=== PATIENT | female | born 1985 | race Caucasian/White ===

== ENCOUNTER 2017-04-27 23:10 | Emergency (ER) | payer OTHER ==
[~2017-04-27] VITALS: Ht 157.5 cm; Wt 88.2 kg
[~2017-04-27 23:10] MED LIST: BCPILLS PO; SUMA25TA12 PO
[2017-04-27 23:12] VITALS: TEMP 36.8; Ht 157.5 cm; Wt 88.2 kg
[2017-04-27] MEDS ORDERED: AZITTAB PO (23:34)
[2017-04-27] MEDS ORDERED: DiphenhydrAMINE HCL 50 MG/ML VIAL IV STA (23:47)
[2017-04-27] MEDS ORDERED: METHYLPREDNISOLONE 125 MG VIAL IV STA (23:47)
[2017-04-27] MEDS ORDERED: FAMOTIDINE 20MG/5ML IV PUSH IV ONE (23:54)
[2017-04-28] MEDS ORDERED: SODIUM CHLORIDE 0.9% 1000ML 1,000 ML IV ONE
[2017-04-28] MEDS ORDERED: FAMOTIDINE IV INJ 20 MG in DEXTROSE 5% 100ML 100 ML IV ONE ×2
[2017-04-28] MEDS ORDERED: DOXY100C PO (00:48)
[2017-04-28] MEDS ORDERED: PRED50TA PO ×2 (00:48→22:57)
[2017-04-28 00:55] VITALS: BP 119/82; PULSE 99; O2SAT 98
[2017-04-28] MEDS ORDERED: DIPH1TAB87 PO (22:38)
--- NOTE | 2017-04-29 03:58 | EMERGENCY ROOM VISIT NOTE ---
History First contact with patient: 23:36 Chief Complaint: ALLERGIC REACTION Stated Complaint: POSSIBLE ALLERGIC REACTION Nursing Triage Summary: t reports that she started azithromycin yesterday and then her nose got red, painful and swollen. pt is on abx for ear infection. denies any other symptoms History of Present Illness The patient is a 31 year old female who presents to the Emergency Room with complaints of swelling of her nose that began worsening over the past several hours. The patient states that she was started on Zithromax for an ear infection yesterday. She has never taken this medication before. She tolerated the medication initially, but was concerned that she may have an allergic reaction. She is not having mouth pain or throat swelling. No coughing or wheezing.. She does not report abdominal pain or vaginal irritation. No rash. She is not taking anything [id number] for her symptoms, and rates her current discomfort a 6/10. Review of Systems More than 10 systems were reviewed and otherwise negative with the exception of history of present illness. Past Medical/Surgical History Medical Problems: (1) Asthma (2) Bronchitis (3) Contusion, arm, upper (4) Contusion, arm, upper (5) Injury of right upper arm Surgical Problems: (1) H/O section Family History FH: cancer Hypertension Social History Smoking Status: Current Every Day Smoker Alcohol Use: none Drug Use: none Marital Status: in relationship Housing Status: lives with family Occupation Status: employed Current/Historical Medications Scheduled Prednisone (Prednisone), 50 MG PO DAILY Prednisone (Prednisone), 50 MG PO DAILY Scheduled PRN Diphenhydramine Hcl (Benadryl Allergy), 25-50 MG PO UD PRN for Allergic Reaction Physical Exam Vital Signs Date Time Temp Pulse Resp B/P (MAP) Pulse Ox O2 Delivery O2 Flow Rate FiO2 04/28/17 00:55 99 20 119/82 98 Room Air 04/28/17 00:09 103 20 136/92 96 Room Air 04/27/17 23:16 99 Room Air 04/27/17 23:12 36.8 109 20 160/109 98 Room Air Physical Exam VITALS: Vitals are noted on the nurse's note and reviewed by myself. Vital signs stable. GENERAL: Well-developed, well-nourished, white female, who is in no acute distress and resting comfortably. Patient is cooperative with the examination. HEAD: Normocephalic atraumatic. EARS: External ear normal. External auditory canals clear, tympanic membranes pearly hawkins without erythema or effusion bilaterally. EYES: Pupils equal round and reactive to light and accommodation. Conjunctivae without injection, sclerae without icterus. Extraocular movements intact. NOSE: External nose is markedly erythematous and edematous. Nares are patent MOUTH: Mucous membranes moist. Tonsils are not enlarged. Pharynx without erythema, blood, or exudate. Uvula midline. Airway patent. NECK: Supple without nuchal rigidity. No lymphadenopathy. No thyromegaly. Cervical spine is nontender. HEART: Regular rate and rhythm without murmurs gallops or rubs. LUNGS: Clear to auscultation bilaterally without wheezes, rales or rhonchi. No retractions or accessory muscle use. ABDOMEN: Positive normal bowel sounds x 4. Soft, nontender, without masses or organomegaly. No guarding or rebound tenderness. MUSCULOSKELETAL: No muscle atrophy, erythema, or edema noted. Full range of motion without joint tenderness in all extremities. SKIN: The skin was without rashes, erythema, edema, or bruising. Capillary refill less than 2 seconds. Medical Decision & Procedures Medications Administered Medications (Trade) Dose Ordered Sig/Marichuy Route Start Time Stop Time Status Last Admin Dose Admin Methylprednisolone Sodium Succinate (Solu-Medrol IV) 125 mg NOW STAT IV 04/27/17 23:47 04/27/17 23:50 DC 04/28/17 00:07 125 MG Diphenhydramine HCl (Benadryl Inj) 50 mg NOW STAT IV 04/27/17 23:47 04/27/17 23:50 DC 04/28/17 00:07 50 MG Sodium Chloride 1,000 ml @ 999 mls/hr Q1H1M ONCE IV 04/28/17 00:00 04/28/17 01:00 DC 04/28/17 00:08 999 MLS/HR Famotidine (Pepcid 20mg Iv Push) 20 mg STK-MED ONCE IV 04/27/17 23:54 04/27/17 23:55 DC 04/27/17 23:54 20 MG ED Course Physical exam and history were performed. Nursing notes, EMR, and Medication List were personally reviewed. Patient appears to have an allergic reaction to Zithromax. She does not have airway compromise and is not describing anaphylactoid symptoms. IV access was established and the patient was given IV Solu-Medrol, IV Benadryl, and IV Pepcid. The patient was monitored for several hours here in the department without any worsening of her symptoms. On reevaluation she did have improved coloring of her nose, although she still remains with some edema. The patient overall reports improvement of her symptoms and is felt well for discharge home. I will give her a continuation course of prednisone. He'll ask her to stop the Zithromax. The patient is to follow with her primary care physician any ongoing or persistent symptoms. She was otherwise invited back to the ER anytime. The chart was completed utilizing [employer] Speech Voice Recognition Software. Grammatical errors, random word insertions, pronoun errors, and incomplete sentences are an occasional consequence of this system due to software limitations, ambient noise, and hardware issues. Any formal questions or concerns about the content, text, or information contained within the body of this dictation should be directly addressed to the provider for clarification. . Medical Decision Differential diagnosis: Etiologies such as allergic reaction, anaphylaxis, urticaria, Schaeffer-Brandon syndrome, toxic epidermal necrolysis, erythema multiforme, cellulitis, as well as others were entertained. Impression Primary Impression: Adverse reaction to drug Departure Information Dispostion Home / Self-Care Condition GOOD Prescriptions Prednisone (Prednisone) 50 Mg Tab 50 MG PO DAILY for 4 Days, #4 TAB Prov: Ketan Rodriguez PA-C 04/28/17 Forms HOME CARE DOCUMENTATION FORM, Work Instructions, Additional Instructions: Patient was seen and evaluated today in the emergency department fo medical care. Return to work on 04/29/2017. Please excuse. IMPORTANT VISIT INFORMATION Patient Instructions My [facility] Additional Instructions You were seen and evaluated today on an emergency basis only. This is not a substitute for, or an effort to provide, complete comprehensive medical care. It is not possible to recognize and treat all injuries or illnesses in a single emergency department visit. For this reason it is recommended that you followup with your primary care physician later this week for recheck of your condition. Discontinue Zithromax. Take prednisone as prescribed the next 4 days Take [id number] Benadryl one to 2 pills every 6 hours as needed for additional relief symptoms Doxycycline twice a day for 10 days. Avoid exposure to the sun/UV light while on this medication or use frequent application of SPF 50 or higher due to increased sensitivity to UV rays and high risk for severe ramirez. You are welcome to return to the emergency department anytime with new, worsening, or concerning symptoms. Work Instructions Additional Work Instructions: Patient was seen and evaluated today in the emergency department for medical care. Return to work on 04/29/2017. Please excuse.
== END 2017-04-28 00:56 | disposition home or self-care (01) ==
LOC: C.EDB 23:12 → C.EDC 04-28 00:56
DX: T78.40XA Allergy, unspecified, initial encounter (principal); T36.3X5A Adverse effect of macrolides, initial encounter; J45.909 Unspecified asthma, uncomplicated; Z80.9 Family history of malignant neoplasm, unspecified; Z82.49 Family history of ischemic heart disease and other diseases of the circulatory system; F17.210 Nicotine dependence, cigarettes, uncomplicated

== ENCOUNTER 2017-04-28 19:48 | Emergency (ER) | payer OTHER ==
[~2017-04-28] VITALS: Ht 157.5 cm; Wt 89.9 kg
[~2017-04-28 19:48] MED LIST changes: +AZITTAB PO; -BCPILLS PO; +DOXY100C PO; +PRED50TA PO; -SUMA25TA12 PO
[2017-04-28 20:13] VITALS: TEMP 36.8; Ht 157.5 cm; Wt 89.9 kg
[2017-04-28] MEDS ORDERED: DiphenhydrAMINE HCL 50 MG/ML VIAL IV STA (21:10)
[2017-04-28] MEDS ORDERED: RANITIDINE HCL 50 MG/100 ML D5W IV STA (21:10)
[2017-04-28] MEDS ORDERED: ALBUT/IPRATROP 3MG/0.5MG NEB 3 ML VIAL INH STA (21:10)
[2017-04-28] MEDS ORDERED: METHYLPREDNISOLONE 125 MG VIAL IV STA (21:10)
--- NOTE | 2017-04-28 21:11 | EMERGENCY ROOM VISIT NOTE ---
History Report prepared by Mingoibseveriano: Enedina Jauregui Under the Supervision of: Dr. Kevin Daly M.D. First contact with patient: 20:45 Chief Complaint: SHORTNESS OF BREATH Stated Complaint: SHORTNESS OF BREATH Nursing Triage Summary: Patient states "I was in last night for an allergic reaction and I feel very off today. I have trouble breathing." Patient took 2 benadryl STAFF RADIATION THERAPIST. History of Present Illness The patient is a 31 year old white female with a past medical history of asthma and bronchitis who presents to the ED with a cc of shortness of breath beginning last night. She reports she was seen here in the ED last night for an allergic reaction to Azithromycin, which she was placed on for a middle ear infection. Today she has continued to have difficulty breathing, so she came back to the ED. She did take 2 Benadryl STAFF RADIATION THERAPIST with minor improvement. Positive rash on face. Source of History: patient Onset: last night Position: chest Timing: other Modifying Factors (Relieving): other (Benadryl ) Associated Symptoms: + rash Review of Systems See HPI for pertinent positives and negatives. A total of ten systems were reviewed and were otherwise negative. Past Medical & Surgical Medical Problems: (1) Asthma (2) Bronchitis (3) Contusion, arm, upper (4) Contusion, arm, upper (5) Injury of right upper arm Surgical Problems: (1) H/O section Family History FH: cancer Hypertension Social History Smoking Status: Current Every Day Smoker Alcohol Use: none Drug Use: none Marital Status: in relationship Housing Status: lives with family Occupation Status: employed Current/Historical Medications Scheduled Prednisone (Prednisone), 50 MG PO DAILY Prednisone (Prednisone), 50 MG PO DAILY Scheduled PRN Diphenhydramine Hcl (Benadryl Allergy), 25-50 MG PO UD PRN for Allergic Reaction Allergies Coded Allergies: Azithromycin (Verified Allergy, Severe, Swelling and redness of face, 04/28) Doxycycline (Verified Allergy, Severe, SHORTNESS OF BREATH, 04/28/17) Hyclate Penicillins (Verified Allergy, Severe, HIVES, 04/27/17) Dog Dander (Verified Allergy, Intermediate, ITCHY EYES, SNEEZING, RUNNY NOSE, CONGESTION, 04/27/17) Physical Exam Vital Signs Date Time Temp Pulse Resp B/P (MAP) Pulse Ox O2 Delivery O2 Flow Rate FiO2 04/28/17 23:05 99 18 106/73 96 04/28/17 21:54 116 18 152/91 93 Room Air 04/28/17 21:38 110 04/28/17 21:21 98 Room Air 04/28/17 20:13 36.8 135 18 157/90 97 Room Air Physical Exam GENERAL: Awake, alert, well-appearing, NAD HENT: Normocephalic, atraumatic. Both TM's are clear. EYES: Normal conjunctiva. Sclera non-icteric. NECK: Supple. No nuchal rigidity. FROM. RESPIRATORY: CTAB, no rhonchi, wheezing, crackles CARDIAC: Tachycardic heart rate, regular rhythm, no MRG ABDOMEN: Soft, NTND, BS+ MSK: No chest wall TTP, no LE edema NEURO: GCS 15, CN 2-12 intact, moves all 4s on command SKIN: Malar rash on face, blanching, no jaundice noted. Medical Decision & Procedures ER Provider Diagnostic Interpretation: Radiology results as stated below per my review and radiologist interpretation: CHEST ONE VIEW PORTABLE HISTORY: EVALUATE ALLERGIC REACTION COMPARISON: None. FINDINGS: The lungs are clear. Cardiac silhouette is normal in size. No pleural effusions. No pneumothorax. IMPRESSION: No acute process. Electronically signed by: Brayan Donohue M.D. 04/28/2017 10:03 PM Laboratory Results 04/28/17 21:25 Red Blood Count 4.67, Mean Corpuscular Volume 91.9, Mean Corpuscular Hemoglobin 31.7, Mean Corpuscular Hemoglobin Concent 34.5, Mean Platelet Volume 9.8, Neutrophils (%) (Auto) 84.0, Lymphocytes (%) (Auto) 8.1, Monocytes (%) (Auto) 7.4, Eosinophils (%) (Auto) 0.0, Basophils (%) (Auto) 0.1, Neutrophils # (Auto) 10.11, Lymphocytes # (Auto) 0.98, Monocytes # (Auto) 0.89, Eosinophils # (Auto) 0.00, Basophils # (Auto) 0.01 04/28/17 21:25 Test 04/28/17 21:25 White Blood Count 12.04 K/uL (4.8-10.8) Red Blood Count 4.67 M/uL (4.2-5.4) Hemoglobin 14.8 g/dL (12.0-16.0) Hematocrit 42.9 % (37-47) Mean Corpuscular Volume 91.9 fL (80-100) Mean Corpuscular Hemoglobin 31.7 pg (25-34) Mean Corpuscular Hemoglobin Concent 34.5 g/dl (32-36) Platelet Count 178 K/uL (130-400) Mean Platelet Volume 9.8 fL (7.4-10.4) Neutrophils (%) (Auto) 84.0 % Lymphocytes (%) (Auto) 8.1 % Monocytes (%) (Auto) 7.4 % Eosinophils (%) (Auto) 0.0 % Basophils (%) (Auto) 0.1 % Neutrophils # (Auto) 10.11 K/uL (1.4-6.5) Lymphocytes # (Auto) 0.98 K/uL (1.2-3.4) Monocytes # (Auto) 0.89 K/uL (0.11-0.59) Eosinophils # (Auto) 0.00 K/uL (0-0.5) Basophils # (Auto) 0.01 K/uL (0-0.2) RDW Standard Deviation 40.6 fL (36.4-46.3) RDW Coefficient of Variation 12.0 % (11.5-14.5) Immature Granulocyte % (Auto) 0.4 % Immature Granulocyte # (Auto) 0.05 K/uL (0.00-0.02) Anion Gap 5.0 mmol/L (3-11) Est Creatinine Clear Calc Drug Dose 89.6 ml/min Estimated GFR () 93.0 Estimated GFR (Non- 80.3 BUN/Creatinine Ratio 12.8 (10-20) Calcium Level 9.6 mg/dl (8.5-10.1) Laboratory results reviewed by me Medications Administered Medications (Trade) Dose Ordered Sig/Marichuy Route Start Time Stop Time Status Last Admin Dose Admin Ranitidine HCl (zANTac IV) 50 mg NOW STAT IV 04/28/17 21:10 04/28/17 21:11 DC 04/28/17 21:53 50 MG Methylprednisolone Sodium Succinate (Solu-Medrol IV) 125 mg NOW STAT IV 04/28/17 21:10 04/28/17 21:11 DC 04/28/17 21:38 125 MG Albuterol/ Ipratropium (Duoneb) 3 ml NOW STAT INH 04/28/17 21:10 04/28/17 21:11 DC 04/28/17 21:37 3 ML Diphenhydramine HCl (Benadryl Inj) 50 mg NOW STAT IV 04/28/17 21:10 04/28/17 21:11 DC 04/28/17 21:37 50 MG ECG Indication: SOB/dyspnea Rate (beats per minute): 93 Rhythm: normal sinus Findings: other (normal intervals, normal axis, questionable TWI in lead 3, no other ST schanges, no other TWI, no evidence of heart strain) Change: Patient's electrocardiogram interpreted by me. ED Course 2103: The patient was evaluated in room C12A. A complete history and physical exam was performed. 2299: I reevaluated the patient. She is resting comfortably and feeling well. I discussed her results and discharge instructions and she verbalized complete understanding and agreement. Medical Decision The patient is a 31 year old white female with a past medical history of asthma and bronchitis who presents to the ED with a cc of shortness of breath beginning last night. Triage Nursing notes reviewed. The patient's presentation and history were concerning for allergic reaction. Differential diagnosis: Etiologies such as contact dermatitis, viral exanthem, urticaria, allergic reaction, Schaeffer-Brandon syndrome, toxic epidermal necrolysis, erythema multiforme, cellulitis, scabies, HSV, varicella, zoster, eczema, staph scalded skin syndrome, fungal infection, as well as others were entertained. Patient was seen and evaluated the bedside. Patient did have a recent concern for some shortness of breath. Patient states that she was recently placed on 2 separate medications for an inner ear infection which point she states that she developed some shortness of breath. On exam the patient does have mild malodor rash but she describes that this is not itchy. Patient not had any nausea or vomiting. At the bedside the patient is not tachypneic nor hypoxic. Patient denies any prior history of DVTs or PEs. Patient does not take any oral contraceptives. Patient was treated similar to an allergic reaction as the patient's symptoms began after taking this medication. The patient only felt mildly improved thereafter. Patient's EKG was fairly unremarkable did not show any signs of right heart strain. I did discuss with the patient that I believe that this is less likely to be some sort of blood clot as the patient's symptoms began after taking the medication. Patient had normal HR on EKG and increased HR after duoneb trx. With elevated HR patient would have WELLS of 1, less likely PE. Counseled on smoking cessation. Patient was told to return if she had any worsening symptoms including signs that would be concerning for things like PE or DVT or worsening shortness of breath or dyspnea on exertion. Do not believe this is CHF as patient has a clear chest x-ray does not appear volume overloaded. The patient is suitable for outpatient follow-up and treatment. Patient was given a course of steroids for home. Patient was agreeable to this plan of care. Patient was given strict follow-up, discharge, and return precautions. All questions were answered. Patient was deemed suitable for outpatient follow-up at this time. Patient agreed with the plan of care and was safely discharged home. The chart was completed utilizing [employer] Speech voice recognition software. Grammatical errors, random word insertions, pronoun errors, and incomplete sentences are an occasional consequence of this system due to software limitations, ambient noise, and hardware issues. Any formal questions or concerns about the content, text, or information contained within the body of this dictation should be directly addressed to the physician for clarification. Medication Reconcilliation Current Medication List: was personally reviewed by me Blood Pressure Screening Patient's blood pressure: Elevated blood pressure Blood pressure disposition: Elevated BP felt to be situational Impression Primary Impression: Allergic reaction Additional Impression: Encounter for smoking cessation counseling Scribe Attestation The scribe's documentation has been prepared under my direction and personally reviewed by me in its entirety. I confirm that the note above accurately reflects all work, treatment, procedures, and medical decision making performed by me. Departure Information Dispostion Home / Self-Care Prescriptions Prednisone (PREDNISONE) 50 Mg Tab 50 MG PO DAILY for 4 Days, #4 TAB Prov: Kevin Daly M.D. 04/28/17 Referrals No Doctor, Assigned (PCP) Patient Instructions ED Drug React Allergic, ED Smoking Cessation, [facility] Additional Instructions Please return to the emergency department if you have worsening or recurrent symptoms not amenable to at-home treatment. Please call for a follow-up appointment with her primary care physician. Please take your medications as prescribed. If you have other concerns and/or complaints please feel free to also call your primary care physician's office or return the ED for further evaluation, management, and treatment. Please return if you cough up any blood, have any leg swelling, worsening shortness of breath. Please stop taking your antibiotics. As we discussed your ears look well and I do not believe she require further antibiotic use. Please take your steroids preferably in the morning with food. They may cause some upset stomach and as such he may benefit from taking something like a Pepcid or Zantac. You may take 600 mg Ibuprofen every 6 hours as needed for pain with food for no more than 2 consecutive days. You may take tylenol 1000 mg every 6 hours as needed for pain. You may take motrin and tylenol separately or at the same time. Take your medications as prescribed. You have been examined and treated today on an emergency basis only. This is not a substitute for, or an effort to provide, complete comprehensive medical care. It is impossible to recognize and treat all injuries or illnesses in a single emergency department visit. It is therefore important that you follow up closely with [facility], your PCP, and/or your specialist(s). Call as soon as possible for an appointment. Thank you for your time and consideration. I look forward to speaking with you again soon. Please don't hesitate to call us if you have any questions. Problem Qualifiers Primary Impression: Allergic reaction Encounter type: subsequent encounter Qualified Codes: T78.40XD - Allergy, unspecified, subsequent encounter
[2017-04-28 21:21] VITALS: O2SAT 98
[2017-04-28 21:47] LABS: BASO % 0.1 %; BASO ABS # 0.01 K/uL (0-0.2); HEMATOCRIT 42.9 % (37-47); HEMOGLOBIN 14.8 g/dL (12.0-16.0); IG# 0.05 K/uL (0.00-0.02); LYMPH % 8.1 %; LYMPH ABS # 0.98 K/uL (1.2-3.4); MEAN CELL VOLUME 91.9 fL (80-100); MEAN CORPUSCULAR HEMOGLOBIN 31.7 pg (25-34); MEAN CORPUSCULAR HGB CONC 34.5 g/dl (32-36); MEAN PLATELET VOLUME 9.8 fL (7.4-10.4); MONO % 7.4 %; MONO ABS # 0.89 K/uL (0.11-0.59); NEUT ABS # 10.11 K/uL (1.4-6.5); PLATELET COUNT 178 K/uL (130-400); RED CELL DISTRIBUTION WIDTH SD 40.6 fL (36.4-46.3); WHITE BLOOD COUNT 12.04 K/uL (4.8-10.8)
[2017-04-28 22:03] LABS: CALCIUM 9.6 mg/dl (8.5-10.1); CREATININE 0.94 mg/dl (0.60-1.20)
--- NOTE | 2017-04-28 22:04 | DIAGNOSTIC IMAGING REPORT ---
CHEST ONE VIEW PORTABLE HISTORY: EVALUATE ALLERGIC REACTION COMPARISON: None. FINDINGS: The lungs are clear. Cardiac silhouette is normal in size. No pleural effusions. No pneumothorax. IMPRESSION: No acute process. Electronically signed by: Brayan Donohue M.D. 04/28/2017 10:03 PM Dictated Date/Time: 04/28/2017 10:02 PM
[2017-04-28] MEDS ORDERED: DIPH1TAB87 PO (22:38)
[2017-04-28] MEDS ORDERED: PRED50TA PO (22:57)
[2017-04-28 23:05] VITALS: BP 106/73; PULSE 99; O2SAT 96
== END 2017-04-28 23:05 | disposition home or self-care (01) ==
LOC: C.EDB 19:49 → C.EDC 23:05
DX: T78.40XD Allergy, unspecified, subsequent encounter (principal); X58.XXXD Exposure to other specified factors, subsequent encounter; F17.200 Nicotine dependence, unspecified, uncomplicated; J45.909 Unspecified asthma, uncomplicated; Z82.49 Family history of ischemic heart disease and other diseases of the circulatory system

== ENCOUNTER 2023-08-27 17:27 | Inpatient (IN) ==
[2023-08-27 18:33] LABS: Appearance Urine Clear (Clear); Bilirubin Urine Negative (Negative); Blood Urine Negative (Negative); Color Urine Yellow; Glucose Urine UA Negative (Negative); Ketones Urine Negative (Negative); Leukocyte Esterase Urine Negative (Negative); Nitrite Urine Negative (Negative); Protein Urine Negative (Negative); Specific Gravity Urine 1.035 (1.000-1.030); Urobilinogen Urine Negative (Negative); pH Urine 7.5 (4.5-7.5)
[2023-08-27 18:41] LABS: Basophils # (auto) 0.05 K/uL (0.00-0.20); Basophils % (auto) 0.6 %; Eosinophils # (auto) 0.08 K/uL (0.00-0.50); Eosinophils % (auto) 0.9 %; Hematocrit (blood only) 40.6 % (37.0-47.0); Hemoglobin 13.7 g/dl (12.0-16.0); Immature Granulocytes # (auto) 0.07 K/uL (0.01-0.20); Immature Granulocytes % (auto) 0.8 %; Lymphocytes # (auto) 1.97 K/uL (1.20-3.40); Lymphocytes % (auto) 23.3 %; Mean Corpuscular Hemoglobin 30.2 pg (25.0-34.0); Mean Corpuscular Hgb Conc 33.7 g/dL (32.0-36.0); Mean Corpuscular Volume 89.4 fL (80.0-100.0); Mean Platelet Volume 9.1 fL (9.4-12.4); Monocytes % (auto) 7.1 %; Neutrophils % (auto) 67.3 %; Platelet Count 328 K/uL (130-400); RDW Coefficient of Variation 11.8 % (11.5-14.5); RDW Standard Deviation 38.2 fL (36.4-46.3); Red Blood Count 4.54 M/uL (4.20-5.40); White Blood Count 8.47 K/ul (4.8-10.8)
[2023-08-27 18:42] LABS: Albumin Globulin Ratio 1.2 (0.9-2); Albumin Level 4.3 gm/dl (3.4-5.0); BUN Creatinine Ratio 11.1 (10-20); Bilirubin,Total 0.2 mg/dl (0.2-1.0); Calcium 9.1 mg/dl (8.6-10.3); Est GFR (African American) 122.3 ml/min; Est GFR (Non-African American) 105.5 ml/min; Globulin 3.5 gm/dl (2.5-4.0); Magnesium 2.1 mg/dl (1.7-2.4); Potassium 3.6 mmol/L (3.5-5.1); Total Protein 7.8 gm/dl (6.0-8.3)
[2023-08-27 18:48] LABS: Troponin I High Sensitivity 4.1 pg/ml (0-14)
[2023-08-27 18:52] LABS: Partial Thromboplastin Time 26 Seconds (21-31); Prothrombin Time 10.5 Seconds (9.0-12.0)
--- NOTE | 2023-08-27 20:32 | Emergency Department Note ---
Impression & Plan LLQ abdominal pain, Intra-abdominal abscess, Colitis ED Provider Note NAME: REMI LOVE AGE: 38 SEX: F : 1985 ARRIVES VIA: Walk-In INFORMANT: [Patient] ED PROVIDER(S): [Walter Frias MD] CHIEF COMPLAINT: Infection HISTORY OF PRESENT ILLNESS: The patient is a 38-year-old female whose had 2.5 weeks of left lower quadrant abdominal pain. The pain varies in intensity and seems to kind of come and go. She has had occasional loose stool, sometimes, she feels some urgency with her urine. She may have had a slight fever at her doctor's office today, she noticed some chills in the last few days. The patient had an outpatient CT of her abdomen today ordered by her doctors office that showed a small abscess between her colon and uterus. The largest area of the abscess was 3 cm. She had colitis seen as well. She was referred to the ER. PMHx/PSHx/Social Hx: See Below PHYSICAL EXAM: GENERAL: Patient is in no acute distress. HEENT: No acute trauma, normocephalic atraumatic, mucous membranes moist, no nasal congestion. NECK: No stridor, no adenopathy, no meningismus, trachea is midline. LUNGS: Clear to auscultation bilaterally, no wheeze, no rhonchi, breath sounds equal. HEART: Without murmurs gallops or rubs, regular rate and rhythm. ABDOMEN: Soft, moderately tender in the left lower quadrant, no distention. EXTREMITIES: No cyanosis, full range of motion of all the joints without pain or difficulty. NEUROLOGIC: Oriented x 3, no acute motor or sensory deficits, no focal weakness. SKIN: No jaundice, no diaphoresis. DIFFERENTIAL DIAGNOSIS: Colitis, diverticulitis, abscess, bowel obstruction, UTI, bowel perforation, among others. EMERGENCY DEPARTMENT PROCEDURES: MEDICAL DECISION MAKING: There is no leukocytosis or concerning anemia. There is a normal platelet count. No coagulopathy. No renal failure or significant electrolyte abnormality. Lactic acid level is not elevated making severe sepsis less likely. No concerning liver enzyme elevation. ECG shows a normal sinus rhythm, no ischemia. Cardiac enzyme testing x 1 is not consistent with acute cardiac injury. Urinalysis does not show findings of infection. Chest x-ray does not show mediastinal widening, pneumonia or pneumothorax. There is no free air. CT imaging from earlier today showed significant wall thickening and inflammatory changes of the mid sigmoid colon consistent with colitis. A small phlegmon/early abscess collection was between the inflamed colon and the uterus measuring 3 x 2.2 cm. On exam, the patient was tender in the left lower quadrant. I did call and speak with general surgery. The patient does not need emergent surgical intervention. She requires admission with IV antibiotic therapy. I spoke with the patient, I did speak with case management and the on-call hospitalist. The patient was given a liter of IV saline for hydration, she received IV Flagyl and IV cefepime as antibiotic coverage. The patient is aware of the need for hospitalization and the IV antibiotic therapy. Prior/Outside records[facility]notes [facility] discussing her presentation and the CT imaging results ECG per my interpretation: Indication was abdominal pain. The ECG shows a normal sinus rhythm with a rate of 98. There is no ST elevation, no PVCs. The QTc is 439. Imaging/x-ray results per my interpretation: Chest x-ray does not show free air, mediastinal widening or pneumonia. Chronic Medical/Social conditions affecting care: Care/Management discussed with: General surgery-Dr. Abiel Taylor. Case management and the on-call hospitalist. Level of care consideration(s): After review of the information above and other included data: --I believe the patient requires escalation of care to admission DISPOSITION: Admitted Past Med/Surg History Problem List (Updated 08/28/23 @ 01:27 by Walter Frias MD) Colitis (Acute) Intra-abdominal abscess (Acute) LLQ abdominal pain (Acute) Contracture, right shoulder S/P arthroscopy of shoulder Operation Date: 02/23/23 10:00 Actual Procedures p Right Shoulder Arthroscopy, limited debridement, In Situ Rotator Cuff Repair, Revision Subacromial Decompression(Right) - Bean Green MD Tear of infraspinatus tendon Traumatic incomplete tear of right rotator cuff S/P arthroscopy of right shoulder p Right Shoulder Arthroscopy, Subacromial Bursectomy, Perilabral Cyst Decompression, Biceps Tenodesis, Labral Repair Encounter for pre-operative examination Paralabral cyst of right shoulder Rotator cuff tear, right Gestational diabetes Twin gestation in third trimester uterine contractions in third trimester, antepartum Allergic reaction (Acute) Adverse reaction to drug (Acute) Asthma (Chronic) has not had issues in ~20 yrs Medical History History of COVID-19 01/2021- moses, cough, loss of taste and smell, no hospitalization, no current issues History of depression Surgical History (Updated 02/23/23 @ 15:12 by Cecilia Hall PA-C) History of arthroscopy of right shoulder History of tonsillectomy and adenoidectomy H/O LEEP History of dental surgery History of colposcopy Family History Other No family history of adverse response to anesthesia Social History Smoking Status: Never smoker Tobacco Type: Cigarettes Cigarettes Per Day: 10 per day - advised; Second Hand Exposure: No; Do You Dip or Chew Tobacco: No; Hx Alcohol Use: No Hx Substance Use: No Preferred Language: Lao Communication Ability: Effective Piano Instructor Required: No Beliefs That Will Affect Care: None marital status: Current Living Situation: Spouse Feels Safe at Home: Yes Assistive Devices: None Allergies Allergies Allergy/AdvReac Type Severity Reaction Status Date / Time azithromycin Allergy Severe Swelling Verified 08/27/23 20:57 of Lip/Tongue/Throat doxycycline Allergy Severe SHORTNESS Verified 08/27/23 20:57 OF BREATH dog dander Allergy Intermediate ITCHY Verified 08/27/23 20:57 EYES, SNEEZING, RUNNY NOSE, CONGESTION Penicillins Allergy Intermediate HIVES Verified 08/27/23 20:57 Home Meds Home Medications Medication Instructions Recorded Confirmed norethindrone acetate 5 mg tablet 5 mg PO QAM 08/27/23 08/27/23 Results & Data (ED) Vital Signs Vital Signs - 24 hr 08/27/23 17:30 08/27/23 20:40 08/27/23 20:59 Temperature 36.7 C Temperature Source Temporal Artery Scan Pulse Rate 103 H Pulse Rate [Finger] 93 H Respiratory Rate 20 18 Respiratory Effort / Characteristics Non-Labored Spontaneous Non-Labored Spontaneous Respiratory Depth Normal Normal Respiratory Pattern Regular Blood Pressure 168/96 H Blood Pressure [Left Arm] 176/87 H Blood Pressure Mean 120 Blood Pressure Mean [Left Arm] 116 Pulse Oximetry 98 98 97 Oxygen Delivery Method Room Air Room Air Room Air Sepsis Recent Fever Within 48 Hours Yes Sepsis New/Unexplained Change in Mental Status No Sepsis Action Taken by Nursing No Action Required 08/27/23 20:59 08/27/23 21:48 Temperature 38.2 C H Temperature Source Oral Pulse Rate 77 Pulse Rate [Finger] Respiratory Rate Respiratory Effort / Characteristics Respiratory Depth Respiratory Pattern Blood Pressure Blood Pressure [Left Arm] Blood Pressure Mean Blood Pressure Mean [Left Arm] Pulse Oximetry Oxygen Delivery Method Sepsis Recent Fever Within 48 Hours Sepsis New/Unexplained Change in Mental Status Sepsis Action Taken by Usp Medications Current Medication List: was personally reviewed by me Laboratory Data Attestation: I reviewed the patient's lab results. 08/27/23 18:07 08/27/23 18:07 Lab Results 08/27/23 08/27/23 Range/Units 18:07 18:16 WBC 8.47 (4.8-10.8) K/ul RBC 4.54 (4.20-5.40) M/uL Hgb 13.7 (12.0-16.0) g/dl Hct 40.6 (37.0-47.0) % MCV 89.4 (80.0-100.0) fL MCH 30.2 (25.0-34.0) pg MCHC 33.7 (32.0-36.0) g/dL RDW Std Deviation 38.2 (36.4-46.3) fL RDW Coeff of Yayo 11.8 (11.5-14.5) % Plt Count 328 (130-400) K/uL MPV 9.1 L (9.4-12.4) fL Immature Gran % (Auto) 0.8 % Neut % (Auto) 67.3 % Lymph % (Auto) 23.3 % [place] % (Auto) 7.1 % Eos % (Auto) 0.9 % Baso % (Auto) 0.6 % Neut # (Auto) 5.70 (1.40-6.50) K/uL Lymph # (Auto) 1.97 (1.20-3.40) K/uL [place] # (Auto) 0.60 H (0.11-0.59) K/uL Eos # (Auto) 0.08 (0.00-0.50) K/uL Baso # (Auto) 0.05 (0.00-0.20) K/uL Immature Gran # (Auto) 0.07 (0.01-0.20) K/uL PT 10.5 (9.0-12.0) Seconds INR 1.0 (0.9-1.1) APTT 26 (21-31) Seconds PTT Ratio 1.0 Sodium 136 (136-145) mmol/L Potassium 3.6 (3.5-5.1) mmol/L Chloride 104 (98-107) mmol/L Carbon Dioxide 26 (21-32) mmol/L Anion Gap 6 (3-11) BUN 8 (6-23) mg/dl Creatinine 0.72 (0.6-1.2) mg/dl Est Cr Clr Drug Dosing 107.0 ml/min Est GFR ( Amer) 122.3 ml/min Est GFR (Non-Af Amer) 105.5 ml/min BUN/Creatinine Ratio 11.1 (10-20) Glucose 99 (70-99(Fasting)) mg/dl Lactate 1.0 (0.4-2.0) mmol/L Calcium 9.1 (8.6-10.3) mg/dl Magnesium 2.1 (1.7-2.4) mg/dl Total Bilirubin 0.2 (0.2-1.0) mg/dl AST 12 L (13-39) U/L ALT 13 (7-52) U/L Alkaline Phosphatase 66 (34-104) U/L Troponin I High Sens 4.1 (0-14) pg/ml Total Protein 7.8 (6.0-8.3) gm/dl Albumin 4.3 (3.4-5.0) gm/dl Globulin 3.5 (2.5-4.0) gm/dl Albumin/Globulin Ratio 1.2 (0.9-2) Procalcitonin < 0.02 (0-0.5) ng/ml Urine Color Yellow Urine Appearance Clear (Clear) Urine pH 7.5 (4.5-7.5) Ur Specific [place] 1.035 H (1.000-1.030) Urine Protein Negative (Negative) Urine Glucose (UA) Negative (Negative) Urine Ketones Negative (Negative) Urine Blood Negative (Negative) Urine Nitrite Negative (Negative) Urine Bilirubin Negative (Negative) Urine Urobilinogen Negative (Negative) Ur Leukocyte Esterase Negative (Negative) Administered Medications Discontinued Medications Clonidine HCl (Clonidine Hcl 0.1 Mg Tab) 0.1 mg PO NOW STA Stop: 08/27/23 20:59 Last Admin: 08/27/23 21:16 Dose: 0.1 mg Documented By: MARCIA Cefepime HCl (Maxipime) 2,000 mg in 20 mls @ 5 mls/min IV NOW STA; Protocol Stop: 08/27/23 20:27 Last Admin: 08/27/23 20:33 Dose: 5 mls/min Documented By: MIRTA Metronidazole (Flagyl) 500 mg in 100 mls @ 100 mls/hr IV NOW STA; Protocol Stop: 08/27/23 21:23 Last Infusion: 08/27/23 23:34 Dose: Infused Documented By: Admin: 08/27/23 20:35 Dose: 100 mls/hr Documented By: MIRTA Sodium Chloride (Nss) 1,000 mls @ 999 mls/hr IV .Q1H1M ONE Stop: 08/27/23 21:24 Last Infusion: 08/27/23 23:34 Dose: Infused Documented By: Admin: 08/27/23 20:34 Dose: 999 mls/hr Documented By: MIRTA Discharge Plan Visit Data Chief Complaint: Infection Stated Complaint: ABSESS BETWEEN INTESTINE/UTERUS ED Provider: Walter Frias Discharge Problem: LLQ abdominal pain, Intra-abdominal abscess, Colitis Patient Disposition: Admitted As Inpatient Condition: Fair Forms Stand Alone Forms: [facility] Prescriptions Prescriptions: No Action norethindrone acetate 5 mg tablet 5 mg PO QAM Referrals Referrals: Nelson Hensley MD [Outside Practitioners] -
[2023-08-27] MEDS: CEFEPIME 2,000 MG/20 ML VIAL IV STA (20:33)
[2023-08-27] MEDS: SODIUM CHLORIDE 0.9% 1,000 ML IV ONE (20:34)
[2023-08-27] MEDS: metroNIDAZOLE 500 MG/100 ML BAG IV STA (20:35)
[2023-08-27] MEDS: cloNIDine HCL 0.1 MG TAB PO STA (21:16)
--- NOTE | 2023-08-28 00:40 | History & Physical Report ---
Date of Service August 28, 2023 Assessment & Plan (1) Sepsis: Plan: Secondary to intra-abdominal abscess Situational hypertension secondary to above bronchial asthma, stable history of cervical intraepithelial neoplasia status post LEEP mood disorder, stable off maintenance medications ongoing tobacco abuse Medical telemetry CS, Cipro, Flagyl General surgery consult Re: Intra-abdominal abscess (ER provider already in touch with Dr. Beebe.) Analgesia, clonidine 1 dose now for uncontrolled BP Nicotine patch as needed DVT prophylaxis. Lovenox subcu Full code Text document was generated using [employer] voice recognition software. It may contain grammatical or spelling errors. Kindly contact undersigned for clarification of any documentation item in question. History of Present Illness Chief Complaint: Abnormal CAT scan Primary Care Provider: Denver Neal MD History obtained from patient and records. Medical history significant for bronchial asthma, history of cervical intraepithelial neoplasia status post LEEP, mood disorder, gestational DM, ongoing tobacco abuse. 2.5 weeks history of suprapubic/lower abdominal pain without fever or chills. Patient seen at PCPs office last week. No infection on UA. Pelvic ultrasound requested by PCP due to ovarian cyst concerns. Outpatient pelvic ultrasound negative. CT abdomen pelvis requested due to persistent symptoms. Study done today showed: Significant wall thickening and inflammatory changes of the mid sigmoid colon consistent with colitis. Small phlegmon/early abscess collection between inflamed colon and uterus measuring 3 x 2.2 cm. Mild inflammatory changes left ovary also noted which may be secondary to adjacent inflammatory changes of the colon. Patient directed to ER by PCP. SBP 170s upon arrival at the ER. Cefepime and Flagyl administered at the ER. Medical History as above Surgical History : Shoulder surgery, tonsillectomy/adenectomy, LEEP surgery, dental surgery, section Family History : Heart disease Personal/Social history : 1 pack daily, no EtOH intake, [employer] jan[employer] Allergies Allergy/AdvReac Type Severity Reaction Status Date / Time azithromycin Allergy Severe Swelling Verified 08/27/23 20:57 of Lip/Tongue/Throat doxycycline Allergy Severe SHORTNESS Verified 08/27/23 20:57 OF BREATH dog dander Allergy Intermediate ITCHY Verified 08/27/23 20:57 EYES, SNEEZING, RUNNY NOSE, CONGESTION Penicillins Allergy Intermediate HIVES Verified 08/27/23 20:57 Home Medications Medication Instructions Recorded Confirmed Type norethindrone acetate 5 mg tablet 5 mg PO QAM 08/27/23 08/27/23 History Past Med/Surg History Problem List (Updated 08/28/23 @ 09:21 by Zachary Johnson MD) Sepsis Colitis (Acute) Intra-abdominal abscess (Acute) LLQ abdominal pain (Acute) Contracture, right shoulder S/P arthroscopy of shoulder Operation Date: 02/23/23 10:00 Actual Procedures p Right Shoulder Arthroscopy, limited debridement, In Situ Rotator Cuff Repair, Revision Subacromial Decompression(Right) - Bean Green MD Tear of infraspinatus tendon Traumatic incomplete tear of right rotator cuff S/P arthroscopy of right shoulder p Right Shoulder Arthroscopy, Subacromial Bursectomy, Perilabral Cyst Decompression, Biceps Tenodesis, Labral Repair Encounter for pre-operative examination Paralabral cyst of right shoulder Rotator cuff tear, right Gestational diabetes Twin gestation in third trimester uterine contractions in third trimester, antepartum Allergic reaction (Acute) Adverse reaction to drug (Acute) Asthma (Chronic) has not had issues in ~20 yrs Medical History History of COVID-19 01/2021- moses, cough, loss of taste and smell, no hospitalization, no current issues History of depression Surgical History (Updated 02/23/23 @ 15:12 by Cecilia Hall PA-C) History of arthroscopy of right shoulder History of tonsillectomy and adenoidectomy H/O LEEP History of dental surgery History of colposcopy Family History Other No family history of adverse response to anesthesia Social History Smoking Status: Current every day smoker Tobacco Type: Cigarettes Cigarettes Per Day: 10 per day - advised; Second Hand Exposure: No; Do You Dip or Chew Tobacco: No; Hx Alcohol Use: No Hx Substance Use: No Preferred Language: Bhutanese Communication Ability: Effective Compensation Administrator Required: No Beliefs That Will Affect Care: None marital status: Current Living Situation: Spouse Feels Safe at Home: Yes Assistive Devices: None Review of Systems Review of Systems: As per HPI, all other systems reviewed and negative Physical Exam Physical Exam: GENERAL: Comfortable, obese, pleasant, no respiratory distress SKIN: Normal color, warm HEENT: [place] palpebral conjunctivae, no ptosis, dry buccal mucosa NECK : Supple, short neck, no tenderness CHEST : CTA, no tenderness HEART : RRR, no obvious murmurs ABDOMEN: Some distention, hypogastric tenderness EXTREMITIES : Minimal LE swelling, no LE tenderness, chronic right shoulder tenderness, no other conspicuous deformities noted NEUROLOGIC : Coherent, no facial asymmetry, no other gross focality Results & Data Results & Data Vital Signs (Past 12 Hours) Vital Signs Temp Pulse Pulse Resp BP BP Pulse Ox 08/27/23 21:48 77 08/27/23 20:59 38.2 C H 08/27/23 20:59 97 08/27/23 20:40 93 H 18 176/87 H 98 08/27/23 17:30 36.7 C 103 H 20 168/96 H 98 O2 Del Method 08/27/23 21:48 08/27/23 20:59 08/27/23 20:59 Room Air 08/27/23 20:40 Room Air 08/27/23 17:30 Room Air Laboratory Results Laboratory Results WBC 8.47 K/ul (4.8-10.8) 08/27/23 18:07 RBC 4.54 M/uL (4.20-5.40) 08/27/23 18:07 Hgb 13.7 g/dl (12.0-16.0) 08/27/23 18:07 Hct 40.6 % (37.0-47.0) 08/27/23 18:07 MCV 89.4 fL (80.0-100.0) 08/27/23 18:07 MCH 30.2 pg (25.0-34.0) 08/27/23 18:07 MCHC 33.7 g/dL (32.0-36.0) 08/27/23 18:07 RDW Std Deviation 38.2 fL (36.4-46.3) 08/27/23 18:07 RDW Coeff of Yayo 11.8 % (11.5-14.5) 08/27/23 18:07 Plt Count 328 K/uL (130-400) 08/27/23 18:07 MPV 9.1 fL (9.4-12.4) L 08/27/23 18:07 Immature Gran % (Auto) 0.8 % 08/27/23 18:07 Neut % (Auto) 67.3 % 08/27/23 18:07 Lymph % (Auto) 23.3 % 08/27/23 18:07 [place] % (Auto) 7.1 % 08/27/23 18:07 Eos % (Auto) 0.9 % 08/27/23 18:07 Baso % (Auto) 0.6 % 08/27/23 18:07 Neut # (Auto) 5.70 K/uL (1.40-6.50) 08/27/23 18:07 Lymph # (Auto) 1.97 K/uL (1.20-3.40) 08/27/23 18:07 [place] # (Auto) 0.60 K/uL (0.11-0.59) H 08/27/23 18:07 Eos # (Auto) 0.08 K/uL (0.00-0.50) 08/27/23 18:07 Baso # (Auto) 0.05 K/uL (0.00-0.20) 08/27/23 18:07 Immature Gran # (Auto) 0.07 K/uL (0.01-0.20) 08/27/23 18:07 PT 10.5 Seconds (9.0-12.0) 08/27/23 18:07 INR 1.0 (0.9-1.1) 08/27/23 18:07 APTT 26 Seconds (21-31) 08/27/23 18:07 PTT Ratio 1.0 08/27/23 18:07 Sodium 136 mmol/L (136-145) 08/27/23 18:07 Potassium 3.6 mmol/L (3.5-5.1) 08/27/23 18:07 Chloride 104 mmol/L (98-107) 08/27/23 18:07 Carbon Dioxide 26 mmol/L (21-32) 08/27/23 18:07 Anion Gap 6 (3-11) 08/27/23 18:07 BUN 8 mg/dl (6-23) 08/27/23 18:07 Creatinine 0.72 mg/dl (0.6-1.2) 08/27/23 18:07 Est Cr Clr Drug Dosing 107.0 ml/min 08/27/23 18:07 Est GFR ( Amer) 122.3 ml/min 08/27/23 18:07 Est GFR (Non-Af Amer) 105.5 ml/min 08/27/23 18:07 BUN/Creatinine Ratio 11.1 (10-20) 08/27/23 18:07 Glucose 99 mg/dl (70-99(Fasting)) 08/27/23 18:07 Lactate 1.0 mmol/L (0.4-2.0) 08/27/23 18:07 Calcium 9.1 mg/dl (8.6-10.3) 08/27/23 18:07 Magnesium 2.1 mg/dl (1.7-2.4) 08/27/23 18:07 Total Bilirubin 0.2 mg/dl (0.2-1.0) 08/27/23 18:07 AST 12 U/L (13-39) L 08/27/23 18:07 ALT 13 U/L (7-52) 08/27/23 18:07 Alkaline Phosphatase 66 U/L (34-104) 08/27/23 18:07 Troponin I High Sens 4.1 pg/ml (0-14) 08/27/23 18:07 Total Protein 7.8 gm/dl (6.0-8.3) 08/27/23 18:07 Albumin 4.3 gm/dl (3.4-5.0) 08/27/23 18:07 Globulin 3.5 gm/dl (2.5-4.0) 08/27/23 18:07 Albumin/Globulin Ratio 1.2 (0.9-2) 08/27/23 18:07 Procalcitonin < 0.02 ng/ml (0-0.5) 08/27/23 18:07 Urine Color Yellow 08/27/23 18:16 Urine Appearance Clear (Clear) 08/27/23 18:16 Urine pH 7.5 (4.5-7.5) 08/27/23 18:16 Ur Specific [place] 1.035 (1.000-1.030) H 08/27/23 18:16 Urine Protein Negative (Negative) 08/27/23 18:16 Urine Glucose (UA) Negative (Negative) 08/27/23 18:16 Urine Ketones Negative (Negative) 08/27/23 18:16 Urine Blood Negative (Negative) 08/27/23 18:16 Urine Nitrite Negative (Negative) 08/27/23 18:16 Urine Bilirubin Negative (Negative) 08/27/23 18:16 Urine Urobilinogen Negative (Negative) 08/27/23 18:16 Ur Leukocyte Esterase Negative (Negative) 08/27/23 18:16 Diagnostic Findings EKG as per my interpretation : Rate 100, NSR, normal axis, no ischemia
[2023-08-28] MEDS ORDERED: LORazepam 0.5 MG TAB PO PRN (00:43)
[2023-08-28] MEDS ORDERED: MoRPHine SULFATE 4 MG/ML 1 ML CARP\\VIAL IV PRN (00:43)
[2023-08-28] MEDS ORDERED: oxyCODONE HCL IR 5 MG TAB (IMMEDIATE RELEASE) PO PRN (00:43)
[2023-08-28] MEDS ORDERED: PROMETHAZINE HCL 12.5 MG in SODIUM CHLORIDE 0.9% 50 ML IV PRN (00:43)
[2023-08-28] MEDS: SODIUM CHLORIDE 0.9% 1,000 ML IV STA (01:32)
[2023-08-28] MEDS: CEFEPIME 2,000 MG in SYRINGE 0 ML IV SCH (04:49)
[2023-08-28] MEDS: metroNIDAZOLE 500 MG/100 ML BAG IV SCH (04:53)
[2023-08-28 05:09] LABS: Basophils # (auto) 0.03 K/uL (0.00-0.20); Basophils % (auto) 0.5 %; Eosinophils # (auto) 0.09 K/uL (0.00-0.50); Eosinophils % (auto) 1.4 %; Hematocrit (blood only) 34.3 % (37.0-47.0); Hemoglobin 11.5 g/dl (12.0-16.0); Immature Granulocytes # (auto) 0.03 K/uL (0.01-0.20); Immature Granulocytes % (auto) 0.5 %; Lymphocytes # (auto) 2.27 K/uL (1.20-3.40); Lymphocytes % (auto) 34.3 %; Mean Corpuscular Hemoglobin 30.2 pg (25.0-34.0); Mean Corpuscular Hgb Conc 33.5 g/dL (32.0-36.0); Mean Platelet Volume 9.1 fL (9.4-12.4); Monocytes # (auto) 0.46 K/uL (0.11-0.59); Neutrophils # (auto) 3.73 K/uL (1.40-6.50); Neutrophils % (auto) 56.3 %; Platelet Count 271 K/uL (130-400); RDW Coefficient of Variation 11.8 % (11.5-14.5); RDW Standard Deviation 38.8 fL (36.4-46.3); Red Blood Count 3.81 M/uL (4.20-5.40); White Blood Count 6.61 K/ul (4.8-10.8)
[2023-08-28 05:23] LABS: BUN Creatinine Ratio 10.6 (10-20); Creatinine Clr Calc Pharmacy 116.8 ml/min; Est GFR (Non-African American) 111.3 ml/min; Potassium 3.8 mmol/L (3.5-5.1)
--- NOTE | 2023-08-28 08:12 | XRay Report ---
XR chest 1V not portable HISTORY: Sepsis COMPARISON: Chest 02/11/2023. FINDINGS: The lungs are clear. Cardiac silhouette is normal in size. No pleural effusions. No pneumot horax. IMPRESSION: No acute process. ACT 112: Negative or not required by law. Electronically signed by: Brayan Donohue M.D. 08/28/2023 8:10 AM
[2023-08-28] MEDS: ENOXAPARIN INJ 40 MG/0.4 ML SYR SQ SCH (08:27)
[2023-08-28] MEDS: LACTATED RINGER'S 1,000 ML IV ONE (15:26)
--- NOTE | 2023-08-28 15:45 | Surgery Progress Note ---
Date of Service August 28, 2023 Assessment & Plan (1) Colitis: (2) Intra-abdominal abscess: Plan Sigmoid colitis and pericolic abscess noted on outpatient CT. No leukocytosis, febrile-resolved. Admitted to medicine for IV antibiotics/conservative management. May have a full liquid diet Record U/O for fluid status. If ok and continues to tolerate diet, may keep IV heplocked. Analgesics and antiemetics as needed Will need outpatient colonoscopy after 8 weeks Will see in the am Admission and Anticipated Discharge Date Admission Date: August 28, 2023 Subjective 38 y/o F presented with 3 days of lower abdominal pain. States she initially thought this was due to an ovarian cyst as she has had in the past. She had been seen by her PCP and a pelvic US determined that this was not the case. She was then sent for a CT A/P that revealed an abscess between the colon and uterus. She was then sent to the ED for further evaluation and management. Jyothi ssa states she has not had any fevers at home. She has never had any GI issues in the past, no h/o colonoscopy and has no idea why she would have developed this. She has normal bowel movements with consistent bowel habits, no blood per rectum, no diarrhea or constipation. Denies N/V or urinary complaints. In the ED here, she did have a fever to 38.2C with stable VSS. Review of Systems Constitutional: no fever, no chills, no sweats and no malaise Respiratory: no cough, no chest congestion, no hemoptysis and no wheezing Cardiovascular: no chest pain, no dyspnea, no palpitations and no syncope Gastrointestinal: + abdominal pain (lower mid and LLQ); no nausea, no vomiting and no diarrhea/loose stools Genitourinary: no dysuria, no difficulty urinating, no urinary frequency and no urinary urgency Physical Exam Constitutional: cooperative; not ill appearing, not in distress and not diaphoretic Respiratory: normal respiratory effort; no respiratory distress, no labored breathing and does not use accessory muscles Cardiovascular: Rate/Rhythm: regular rate; not tachycardic well perfused Gastrointestinal (Abdomen): Inspection/Auscultation: abdomen not distended Percussion/Palpation: + abdomen tender (mild mid and LLQ), + guarding (mild, voluntary) and abdomen soft; abdomen not rigid Results & Data Vital Signs (Past 12 Hours) Vital Signs Pulse Resp BP Pulse Ox 06/01/24 11:09 68 08/28/23 08:21 59 L 15 126/74 93 08/28/23 05:00 77 18 107/60 94 Results Complete Blood Count Results: RBC 3.81 M/uL (4.20-5.40) L 08/28/23 WBC 6.61 K/ul (4.8-10.8) 08/28/23 Hgb 11.5 g/dl (12.0-16.0) L 08/28/23 Hct 34.3 % (37.0-47.0) L 08/28/23 Plt Count 271 K/uL (130-400) 08/28/23 PG Care Time/CCT Total # of Minutes Spent Total Time Spent with Patient: Total time spent is greater than 50% in coordination of care (as documented) at patient's floor/unit and/or counseling patient: [place] [address] SUB INP/OBS CARE 2/35MIN Patient Type New History Detailed Exam Detailed Diagnoses Colitis K52.9 Intra-abdominal abscess K65.1
--- NOTE | 2023-08-28 16:45 | Hospitalist Progress Note ---
Date of Service August 28, 2023 Assessment & Plan (1) Sepsis: Plan: Intra-abdominal abscess Colitis --Outpatient CT: Significant wall thickening and inflammatory changes of the mid sigmoid colon consistent with colitis. Small phlegmon/early abscess collection between inflamed colon and uterus measuring 3 x 2.2 cm. Mild inflammatory changes left ovary also noted which may be secondary to adjacent inflammatory changes of the colon. -- Blood culture pending -- Continue Cipro, Flagyl, IV fluids -- Liquid diet today --Pain control --Appreciate surgery input: Conservative management with IV antibiotics --Will obtain stool studies if develops diarrhea Will need outpatient colonoscopy in 8 weeks Hypertension Situational secondary to pain Blood pressure much better today Monitor Bronchial asthma No signs of exacerbation Monitor H/O Cervical intraepithelial neoplasia S/P LEEP Mood disorder--currently not on meds Ongoing tobacco abuse--counseled to quit smoking DVT Px: Lovenox SQ Code Status Full code Admission and Anticipated Discharge Date Admission Date: August 28, 2023 Subjective Patient is seen and examined at bedside Abdominal pain better when compared to yesterday Denies any nausea, vomiting, chest pain, dyspnea States having loose BM today No other complaints Review of Systems Review of Systems: All systems reviewed & are unremarkable except as noted in Subjective Physical Exam Physical Exam: Physical Exam: Vitals signs as noted above General Appearance:Obese, no apparent distress Head: normocephalic, Atraumatic Eyes: normal inspection, EOMI Neck: supple, Trachea midline Respiratory/Chest: Normal breath sounds, CTA, No accessory muscle use Cardiovascular: S1, S2, No murmur Abdomen/GI:Soft, LLQ tender, Bowel sounds present Extremities/Musculoskeletal:normal inspection, no edema Neurologic/Psych:AAOX3, grossly no focal neurological deficits Skin: normal color, warm Results & Data Results & Data Vital Signs (Past 12 Hours) Vital Signs Pulse Resp BP Pulse Ox 08/28/23 16:12 63 08/28/23 11:09 68 08/28/23 08:21 59 L 15 126/74 93 08/28/23 05:00 77 18 107/60 94 Laboratory Results Short CBC 08/27/23 08/28/23 Range/Units 18:07 04:20 WBC 8.47 6.61 (4.8-10.8) K/ul Hgb 13.7 11.5 L (12.0-16.0) g/dl Hct 40.6 34.3 L (37.0-47.0) % Plt Count 328 271 (130-400) K/uL BMP 08/27/23 08/28/23 18:07 04:20 Sodium 136 138 Potassium 3.6 3.8 Chloride 104 109 H Carbon Dioxide 26 24 BUN 8 7 Creatinine 0.72 0.66 Glucose 99 93 Calcium 9.1 8.0 L Liver Function 08/27/23 Range/Units 18:07 Total Bilirubin 0.2 (0.2-1.0) mg/dl AST 12 L (13-39) U/L ALT 13 (7-52) U/L Alkaline Phosphatase 66 (34-104) U/L Albumin 4.3 (3.4-5.0) gm/dl Urine 08/27/23 Range/Units 18:16 Urine Color Yellow Urine Appearance Clear (Clear) Urine pH 7.5 (4.5-7.5) Ur Specific [place] 1.035 H (1.000-1.030) Urine Protein Negative (Negative) Urine Glucose (UA) Negative (Negative)
[2023-08-28] MEDS: CIPROFLOXACIN / D5W 400 MG/200 ML BAG IV SCH (19:16)
--- OUTSIDE RECORDS SUMMARY | 2023-08-28 19:26 | External Medical Summary | Summary of Care ---
Author Name Unknown Organization [facility] Address [address] [facility] [place] [address] Phone [phone] Care Team Providers Care Forecast Analyst Name Role Phone Vane Bob PA-C Primary Care Provider [phone] Reason for Visit * Reason Comments Abdominal Pain Lower abdomen for ab out 1.5 weeks Encounter Details Date Type Department Care Team (Late st Contact Info) Description 08/21/2023 10:00 AM EDT Office Visit Family [facility] [address] [place] [address] Denver Neal MD [address] [place] [address] Suprapubic pain* Allergies Active Allergy Reactions Criticality Noted Date Comments Azithromycin Anaphylaxis High 08/18/2018 Penicillins 04/29/1999 swelling documented as of this encounter (statuses as of 08/21/2023) Medications Medication Sig Dispensed Refills Start Date End Date Status Norethindrone Acetate 5 MG Oral TabletIndications:Pel shannan pain in female Take 1 Tablet by mouth in the morning. 30 Tablet 5 07/13/2023 Active documented as of this encounter (statuses as of 08/21/2023) Active Problems Problem Noted Date Diagnosed Date Acanthosis nigricans 06/10/2022 Mild persistent asthma without complication 04/29 Advance directive declined by patient 11/10/2018 Overview: No, Advance Directive brochure offered, patient declined. 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 12/26/2018 Crystal De La Cruz LPN Patient given TDap vaccine. 12/26/2018 .Crystal De La Cruz LPN Thrombocytopenia 12/07/2018 01/16/2019 Overview: @31w4d plts 127 GDM (gestational diabetes mellitus) 10/20/2018 01/16/2019 Overview: Early 1hr gtt elevated over 200 Has not been reported blood sugars to [facility] despite weekly attempts to contact patient Reporting blood sugars to [facility]; last reported on 11/24/18 then 01/06/19 Diet controlled Twin gestation, monochorionic diamniotic 10/13/2018 10/10/2021 Need for rubella vaccination 08/23/2018 01/16/2019 Overview: Rubella non-immune. Vaccinate PP. Obesity, Class II, BMI 35-39 .9, isolated (see actual BMI) 08/18/2018 01/16/2019 Overview: Early glucola ordered Tobacco smoking complicating 08/18/2018 01/16/2019 Overview: Smoking under 1ppd at NOB, down from at least 1.5ppd. @24w5d continues to smoke 1ppd- does not intend to quit Twin 08/18/2018 01/16/2019 Dysplasia of cervix, high grade CORTEZ 2 05/20/2015 04/22/2022 Overview: 2005 Annual paps til 2024. Tobacco use disorder 04/01/2007 009 Overview: Resolved per Duplicate Protocol #2. PREV C-SECT NOS-ANTEPART 09/09/2005 Overview: 2 prior c/s Encounter for supervision of other normal 09/09/2005 05/20/2015 Overview: ICD-10 update of inactive term Encounter for supervision of other normal 09/09/2005 05/20/2015 Overview: ICD-10 update of inactive term Cervical intraepithelial neoplasia grade 2 07/16/2004 05/20/2015 ACUTE PHARYNGITIS 04/25/2003 05/17/2008 Overview: Resolved per Benign Acute Dxs Protocol #3 ACUTE URI NOS 04/25/2003 05/17/2008 Overview: Resolved per Benign Acute Dxs Protocol #3 HISTORY OF TOBACCO USE 04/25/200305/20 Cough 04/25/2003 10/10/2021 Normal , first 03/20/200307/29 KNEE PAIN, RIGHT, S/P INJURY 11/07/2002 10/10/2021 Major depressive disorder, s jordin episode, moderate 03/09/2000 10/10/2021 High-risk sexual behavior 03/09/2000 CONTRACEPT SURVEILL NOS 03/09/200009/26 EXT ASTHMA W-O STAT ASTH documented as of this encounter (statuses as of 08/21/2023) Immunizations Name Administration Dates Next Due HPV Vaccine, 4-Valent 08/29/2010,05/01/2010,12/0 04/200904/24/2010 MMR - Measles/Mumps/Rubella Vaccine 01/12/2019 PPD 07/09/2010 Pneumococcal Polysaccharide PPV23 (Pneumovax) 04/10/2010 Seasonal Influenza, PF, 6 M & above, IM , (FluLaval or Fluzone) 12/26/2018 Seasonal Influenza, Split, I IV3, With Preserve, Inj 02/26/2010 TDAP (age 10 and older)(Boostrix) 12/26/2018 documented as of this encounter Social History Tobacco Use Types Packs/Day Years Used Date Smoking Tobacco: Every Day Cigarettes 0.5 8 Passive Smoke Exposure: Current Smokeless Tobacco: Never Tobacco Cessation:Ready to Q uit: Yes; Counseling Given: No Comments:1/2 ppd per pt, decreased from 1-1.5 ppd prior to Alcohol Use Standard Drinks/Week Comments No 0 (1 standard drink = 0.6 oz pur e alcohol) denies in 2019 PHQ-2 Answer Date Recorded PHQ Adult Total Score 2 05/12/2022 Hunger Vital Sign Answer Date Recorded Within the past 12 months, y ou worried that your food would run out before you got the money to buy more. Never true 05/12/19 23 Within the past 12 months, t he food you bought just didn't last and you didn't have money to get more. Never true 05/12/2022 [place] Depression Scale Answer Date Recorded [place] Depression Scale Score 5 02/22/2019 The thought of harming myself has occurred to me . (Pt Reported) 02/22/2019 Education Answer Date Recorded What is the highest level of school you have completed or the highest degree you have received? High school graduate 09/26/2018 Sex and Gender Information Value Date Recorded Sex Assigned at Female 05/12/2022 9:04 AM EST Gender Identity Female 05/12/2022 9:04 AM EST Sexual Orientation Straight 05/12/2022 9: 04 AM EST Job Start Date Occupation Industry Not on file Not on file Not on file documented as of this encounter Last Filed Vital Signs Vital Sign Reading Time Taken Comments Blood Pressure 116/76 08/21/2023 9:52 AM EDT Pulse 96 08/21/2023 9:52 AM EDT Temperature 37.1 C (98.7 F) 08/21/2023 9:52 AM ED T Respiratory Rate 12 08/21/2023 9:52 AM EDT Oxygen Saturation - - Inhaled Oxygen Concentration - - Weight 89 kg (196 lb 3.2 oz) 08/21/2023 9:52 AM EDT Height - - Body Mass Index 36.77 10/12/2022 11:27 AM EDT documented in this encounter Progress Notes * Denver Neal MD - 08/21/2023 10:07 AM EDT SUBJECTIVE: Carin Stone is a 38 year old female here for Abdominal Pain (Lower abdomen for about 1.5 weeks) . C/o suprapubic/lower abd pain x1.5 wk or so. Generally sharp, some times milder. Generally always there. She has 2 preschool boys. One with stomach pain for a couple days and other for the last 3 days but they both had some diarrhea with it. She has not had any diarrhea. No fever no chills no chest pain no shortness of breath. No dysuria. No significant frequency. Today had normal soft BM, yesterday was a little constipated. She typically alternates between constipated and normal. Sometimes feels like she has sense of incomplete emptying of her urine. She does has a has a history of ovarian cyst, although they usually have not been sore this long. Her last menstrual period was over a month ago. She has not had sex in the last month and she is on progesterone oral contraception. Physical: BP 116/76 (BP Site: Left Arm, BP Position: Sitting, BP Cuff Size: Large) | Pulse 96 | Temp 37.1 C(98.7 F) (Tympanic) | Resp 12 | Wt 89 kg (196 lb 3.2 oz) | BMI 36.77 kg/m | BSA 1.96 m General-No apparent Distress Head, Eyes, Ears, Nose, Throat--Normocephalic, atraumatic Neck-Supple Lymph-no lymphadenopathy Lungs-Clear to Auscultation bilaterally Cardiovascular--Regular rate & Rhythm, +s1, s2, no murmur Abdomen-soft, +LLQ pain, +suprapubic tender, nondistended + bowel sounds no rebound Extremities--no edema Neuro-alert & oriented x3 UA dip UA WNL except +blood (lysed) Upreg neg (R10.2) Suprapubic pain (primary encounter diagnosis) Plan: URINALYSIS, POINT OF CARE (ENTER/EDIT), URINE SCREEN, POINT OF CARE (ENTER/EDIT), US PELVIS TRANS-VAGINAL NON-OB, CULTURE, URINE, QUANTITATIVE, CANCELED: HCG QUALITATIVE, URINE -suspect ovarian cyst -consider diverticulitis, colitis, less likely. Upreg neg. -ibuprofen up to 800mg TID ER if acute worsening (This note was completed using the dictation program Fluency Direct. As such, there may be misspellings, word substitutions, or other variations that should not change the essence of the clinical content of this encounter note.If there is need for further clarification, please direct questions to the provider listed above.) Denver Neal MD documented in this encounter Nursing Notes * Ad Ahn RN - 08/21/2023 9:54 AM EDT Chief Complaint Patient presents with Abdominal Pain Lower abdomen for about 1.5 weeks documented in this encounter Plan of Treatment Upcoming Encounters Date Type Department Care Team (Late st Contact Info) Description 08/25/2023 11:15 AM EDT Imaging Radiology, [place] [address] [place] [address] 10/14/2023 2:20 PM EDT Office Visit [facility] [place] [address] [place] [address] Vane Bob PA-C [address] [place] [address] Scheduled Orders Name Type Priority Associated Diagnoses Orde r Schedule URINALYSIS, POINT OF CARE (ENTER/EDIT) Point of Care Testing Routine Suprapubic pain Ordered: 08/21/2023 US PELVIS TRANS-VAGINAL NON-OB Medical Imaging STAT Suprapubic pain Expected: 08/24/2023, Expires: 09/20/2024 CULTURE, URINE, QUANTITATIVE Lab Routine Suprapubic pain Ordered: 08/21/2023 Health Maintenance Due Date Last Done Comments DISCUSS TOBACCO CESSATION (REFER TO SMARTSET #4396) 1984 Pneumococcal Vaccine: Pediatrics (0 to 5 Years) and At-Risk Patients (6 to 64 Years) (2 of 2 - PCV) 04/10/2011 04/10/2010 *SPIROMETRY ONCE FOR ASTHMA-ADULT 02/19/2022 COVID-19 Vaccine (1 - season) 2022 Depression Screening 05/12/2023 05/12/2022 Influenza Vaccine (FLU shot) (Season Ended) 2023 12/26/2018, 02/26/2010 Pap Smear 04/22/2025 04/22/2022, 07/28, 05/20/2015, Additional history exists Diabetes Screening 06/22/2026 06/23/2023, 0 06/23/2023, 04/04/2018, Additional history exists Cervical Cancer Screening 04/22/2027 HPV/Co-Test 04/22/2027 04/22/2022 DTaP,Tdap,and Td Vaccines (7 - Td or Tdap) 12/26/2028 12/26/2018, 10/12/1989, 03/12/1986, Additional history exists Hepatitis B Completed 09/11/1998, 02/27, 02/20/1998 GARDASIL-HPV IMMUNIZATION SERIES Completed 08/29/2010, 05/01/2010, 02/27/2010 MENINGOCOCCAL (MENACTRA/MENVEO) Aged Out No longer eligible based on patient's age to complete this topic documented as of this encounter Medical Devices Not on filedocumented as of this encounter Procedures Procedure Name Priority Date/Time Associated Diagnosis Comments URINALYSIS, POINT OF CARE SHAYY 08/21/2023 10:12 AM EDT URINE SCREEN, POINT OF CARE (ENTER/EDIT) Routine 08/21/2023 Suprapubic pain documented in this encounter Results * (ABNORMAL) URINALYSIS, POINT OF CARE (08/21/2023 10:12 AM EDT) Color, Urine Light Yellow Light Yellow, Yellow 08/21/2023 10:15 AM EDT [facility] Clarity, Urine Clear Clear 08/21/2023 10:15 AM EDT [facility] Glucose, Urine Negative Negative mg/dL 08/21/2023 10:15 AM EDT [facility] Bilirubin, Urine Negative Negative 08/21/2023 10:15 AM EDT [facility] Ketone, Urine Negative Negative mg/dL 08/21/2023 10:15 AM EDT [facility] Specific [place], Urine <=1.005 1.003 - 1.030 08/21/2023 10:15 AM EDT [facility] Blood, Urine Trace-lysed( A) Negative 08/21/2023 10:15 AM EDT [facility] pH, Urine 7.0 5.0, 5.5, 6.0, 6.5, 7.0, 7.5 units 08/21/2023 10:15 AM EDT [facility] Protein, Urine Negative Negative mg/dL 08/21/2023 10:15 AM EDT [facility] Urobilinogen, Urine 0.2 0.2, 1.0 mg/dL 08/21/2023 10:15 AM EDT [facility] Nitrite, Urine Negative Negative 08/21/2023 10:15 AM EDT [facility] Esterase, Urine Negative Negative 08/21/2023 10:15 AM EDT [facility] Urine 08/21/2023 10:1 2 AM EDT 08/21/2023 10:15 AM EDT Denver Neal MD LAB POINT OF CAR E TEST DOCKED DEVICE UNSOLICITED RESULTS [facility] [address] [facility] [place] [address] * URINE SCREEN, POINT OF CARE (ENTER/EDIT) (08/21/2023) hCG Beta, Urine Negative Negative Procedural Control Valid? Yes Lot Number [id number] Expiration Date 04/25/2024 Urine 08/21/2023 Denver Nela MD LAB POINT OF CAR E TEST ENTER/EDIT ORDERABLES documented in this encounter Visit Diagnoses Diagnosis Suprapubic pain- Primary Abdominal pain, other specified site documented in this encounter Advance Directives * Full Code (Latest Code Status on File) Date Activated Date Inactivated Comments 01/09/2019 7:42 AM 01/12/2019 6:14 PM This order reflects the patients wishes and were consensually agreed upon. * Full Code Date Activated Date Inactivated Comments 01/08/2019 11:09 AM 01/08/2019 5:18 PM This orde r reflects the patients wishes and were consensually agreed upon. Care Teams Forecast Analyst Relationship Specialty Start Date End Date Vane Bob PA-C [address] [place] [address] PCP - General Physician Fixing Carpenter 10/10/21 documented as of this encounter"
--- OUTSIDE RECORDS SUMMARY | 2023-08-28 19:26 | External Medical Summary ---
Author Name Unknown Address Unknown Organization [id number]:[facility] - [address] [place] [address] Laboratory Report Ordering Provider Test Date Status ANTON PEREZ 08/21/2023 10:12:00 Final Observation Date Value Abnormality Reference (Units ) Status Color of Urine by Auto 08/21/2023 10:12:00 Light Yellow Light Yellow, Yellow Final Clarity, Urine 08/21/2023 10:12:00 Clear Clear Final Glucose [Mass/volume] in Urine by Automated test strip 08/21/2023 10:12:00 Negative Negative (mg/dL) Final Bilirubin.total [Presence] in Urine by Automated test strip 08/21/2023 10:12:00 Negative Negative Final Ketones [Mass/volume] in Urine by Automated test strip 08/21/2023 10:12:00 Negative Negative (mg/dL) Final Specific gravity, Urine 08/21/2023 10:12:00 <=1.005 1.003-1.030 Final Hemoglobin [Presence] in Urine by Automated test strip 08/21/2023 10:12:00 Trace-lysed Abnormal Negative Final pH, Urine 08/21/2023 10:12:00 7.0 5.0, 5.5, 6.0, 6.5, 7.0, 7.5 (units) Final Protein [Mass/volume] in Urine by Automated test strip 08/21/2023 10:12:00 Negative Negative (mg/dL) Final Urobilinogen, Urine 08/21/2023 10:12:00 0.2 0.2, 1.0 (mg/dL) Final Nitrite [Presence] in Urine by Automated test strip 08/21/2023 10:12:00 Negative Negative Final Leukocyte esterase [Presence] in Urine by Automated test strip 08/21/2023 10:12:00 Negative Negative Final Performing Location [facility] [address] - [address] [place] [address]
--- OUTSIDE RECORDS SUMMARY | 2023-08-28 19:26 | External Medical Summary ---
Author Name Unknown Address Unknown Organization [id number]:[facility] - [address] [place] [facility] Laboratory Report Ordering Provider Test Date Status ANTON PEREZ 08/21/2023 10:24:42 Final Observation Date Value Abnormality Reference (Units) Status Bacteria identified in Specimen by Culture 08/21/2023 10:24:42 No significant growth Final Test: Culture, Urine, Quant itative
Specimen Source: Urine, Clean Catch
Specimen Type: Urine
Specimen Date: 08/21/2023 1024
Result Date: 08/22/2023 1330
Result Status: Final result
Resulting Lab: [facility]
[address]
[place] [address]

CULTURE

No significant growth

null Performing Location [facility] - [address] [place] [facility] [address]
--- OUTSIDE RECORDS SUMMARY | 2023-08-28 20:51 | External Medical Summary | Summary of Care ---
Author Name Unknown Organization [facility] Address [address] [facility] [place] [address] Phone [phone] Care Team Providers Care Matzo Forming Machine Operator Name Role Phone Vane Bob PA-C Primary Care Provider [phone] Reason for Visit * Reason Onset Date Comments Test Results 08/27/2023 Encounter Details Date Type Department Care Team (Late st Contact Info) Description 08/27/2023 Telephone [facility] [address] [place] [address] Vane Bob PA-C [address] [place] [address] Test Results Allergies Active Allergy Reactions Criticality Noted Date Comments Azithromycin Anaphylaxis High 08/18/2018 Penicillins 04/29/1999 swelling documented as of this encounter (statuses as of 08/27/2023) Medications Medication Sig Dispensed Refills Start Date End Date Status Norethindrone Acetate 5 MG Oral TabletIndications:Pel shannan pain in female Take 1 Tablet by mouth in the morning. 30 Tablet 5 07/13/2023 Active documented as of this encounter (statuses as of 08/27/2023) Active Problems Problem Noted Date Diagnosed Date Acanthosis nigricans 06/10/2022 Mild persistent asthma without complication 04/29 Advance directive declined by patient 11/10/2018 Overview: No, Advance Directive brochure offered, patient declined. 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, selective IUGR of Baby A (EFW 5%); Baby B normal growth NST 2x weekly; weekly dopplers with [facility]; delivery 36 weeks with normal testing Dichorionic [...] Has not been reported blood sugars to [facility] despite weekly attempts to contact patient Reporting blood sugars to [facility]; last reported on 11/24/18 then 01/06/19 [...] as of this encounter (statuses as of 08/27/2023) Immunizations Name Administration Dates Next Due HPV [...] Passive Smoke Exposure: Current Smokeless Tobacco: Never Comments:1/2 ppd per pt, dec reased from 1-1.5 ppd prior to Alcohol Use [...] money to get more. Never true 05/12/2022 [place] Depression Scale Answer Date Recorded [place] Depression Scale Score 5 02/22/2019 The thought [...] on file documented as of this encounter Miscellaneous Notes * Telephone Encounter - Cheyenne Palm LPN - 08/27/2023 4:07 PM EDT Ruma calling from [facility] Significant abnormal results on CT ABD/Pelvis Ordering provider needs to review: Dr. Neal Spoke with Stephenie at the office, CT Teach came over to the office to make nurses aware of the abnormal results, patient in the office currently and Dr. Neal is going to talk with patient. * Telephone Encounter - Stephenie Stoddard OSA - 08/27/2023 4:04 PM EDT Reason for patient's call: abnormal results Caller was transferred to [facility] at the nurse line. documented in this encounter Plan of Treatment Upcoming Encounters Date Type Department Care Team (Late st Contact Info) Description 10/14/2023 2:20 PM EDT Office Visit [facility] [address] [place] [address] Vane Bob PA-C [address], [place] [id number] Health Maintenance Due Date Last Done Comments DISCUSS TOBACCO CESSATION (REFER TO SMARTSET #[id number]) 1984 Pneumococcal Vaccine: Pediatrics (0 to 5 Years) and At-Risk Patients (6 to 64 Years) (2 of 2 - PCV) 04/10/2011 04/10/2010 *SPIROMETRY ONCE FOR ASTHMA-ADULT 02/19/2022 COVID-19 Vaccine ( - season) 2022 Depression Screening 05/12/2023 05/12/2022 [...] Not on filedocumented as of this encounter Advance Directives * Full Code (Latest Code Status on File) Date Activated Date Inactivated Comments 01/09/2019 7:42 AM 01/12/2019 6:14 PM This order reflects the patients wishes and were consensually agreed upon. * Full Code Date Activated Date Inactivated Comments 01/08/2019 11:09 AM 01/08/2019 5:18 PM This orde r reflects the patients wishes and were consensually agreed upon. Care Teams Matzo Forming Machine Operator Relationship Specialty Start Date End Date Vane Bob PA-C [address] [facility] [place] [address] PCP - General Physician Computer Technician 10/10/21 documented as of this encounter
--- OUTSIDE RECORDS SUMMARY | 2023-08-28 20:51 | External Medical Summary | Summary of Care ---
Author Name Unknown Organization [facility] Address [address] [facility] [place] [address] Phone [phone] Care Team Providers Care Regasification Plant Operator Name Role Phone Vane Bob PA-C Primary Care Provider [phone] Encounter Details Date Type Department Care Team (Late st Contact Info) Description 08/27/2023 Telephone Family Practice [facility] [address] [place] [address] Denver Neal MD [address] [place] [address] Allergies Active Allergy Reactions Criticality Noted Date [...] growth NST 2x weekly; weekly dopplers with [facility]; delivery 36 weeks with normal testing [...] Has not been reported blood sugars to [facility] despite weekly attempts to contact patient Reporting blood sugars to [facility]; last reported on 11/24/18 then 01/06/19 [...] Administration Dates Next Due HPV Vaccine, 4-Valent 08/29/2010,05/01/2010,1204/200904/24/2010 MMR - Measles/Mumps/Rubella Vaccine 01/12/2019 PPD 07/09/2010 [...] money to get more. Never true 05/12/2022 [place] Depression Scale Answer Date Recorded [place] Depression Scale Score 5 02/22/2019 The thought [...] encounter Miscellaneous Notes * Telephone Encounter - Denver Neal MD - 08/27/2023 4:26 PM EDT Received stat CT abd. Colitis w/suspected 3cm abscess. I reviewed with patient in office, occ subj fever/chills. T99.2 now. Sent to ER--pt will drive self for eval, abx, may need surg consult/IR etc for abscess. Report given/faxed to ER Cc: PCP documented in this encounter Plan of Treatment Upcoming Encounters Date Type Department Care Team (Late st Contact Info) Description 10/14/2023 2:20 PM EDT Office Visit [facility] [place] [address] [place] [address] Vane Bob PA-C [address] [address] Health Maintenance Due Date Last Done Comments DISCUSS TOBACCO CESSATION (REFER TO SMARTSET #[id number]) 1985 Pneumococcal Vaccine: Pediatrics (0 to 5 Years) and At-Risk Patients (6 to 64 Years) (2 of 2 - PCV) 04/10/2011 04/10/2010 *SPIROMETRY ONCE FOR ASTHMA-ADULT 02/19/2022 COVID-19 Vaccine ( - season) 2022 Depression Screening 05/12/2023 05/12/2022 Influenza Vaccine (FLU shot) (Season Ended) 2023 12/26/2018, 02/26/2010 Pap Smear 04/22/2025 04/22/2022, 0505/2018, 05/20/2015, Additional history exists Diabetes Screening 06/22/2026 [...] and were consensually agreed upon. Care Teams Regasification Plant Operator Relationship Specialty Start Date End Date Vane Bob PA-C [address] [place] [id number] PCP - General Physician Emergency Response Officer 10/10/21 documented as of this encounter
--- OUTSIDE RECORDS SUMMARY | 2023-08-28 20:51 | External Medical Summary | Summary of Care ---
Author Name Unknown Organization [facility] Address [address] [facility] [place] [address] Phone [phone] Care Team Providers Care Loom Stop Checker Name Role Phone Vane Bob PA-C Primary Care Provider [phone] Encounter Details Date Type Department Care Team (Late st Contact Info) Description 08/27/2023 Telephone Family Practice [facility] [address] [place] [address] Denver Neal MD [address] [place] [address] Allergies Active Allergy Reactions Criticality Noted Date [...] growth NST 2x weekly; weekly dopplers with [facility]; delivery 36 weeks with normal testing [...] Has not been reported blood sugars to [facility] despite weekly attempts to contact patient Reporting blood sugars to [facility]; last reported on 11/24/18 then 01/06/19 [...] money to get more. Never true 05/12/2022 [place] Depression Scale Answer Date Recorded [place] Depression Scale Score 5 02/22/2019 The thought [...] encounter Miscellaneous Notes * Telephone Encounter - Vane Bob PA-C - 08/27/2023 5:32 PM EDT Noted - nursing please watch er - if admitted will need hosp f/u Otherwise er f/u based on er note Vane Bob PA-C * Telephone Encounter - Denver Neal MD [...] Description 10/14/2023 2:20 PM EDT Office Visit [facility] [address] [place] [address] Vane Bob PA-C [address] [place] [address] Health Maintenance Due Date Last Done Comments DISCUSS TOBACCO CESSATION (REFER TO SMARTSET #[id number]) 1984 Pneumococcal Vaccine: Pediatrics (0 to 5 Years) and At-Risk Patients (6 to 64 Years) (2 of 2 - PCV) 04/10/2011 04/10/2010 *SPIROMETRY ONCE FOR ASTHMA-ADULT 02/19/2022 COVID-19 Vaccine ( season) 2022 Depression Screening 05/12/2023 05/12/2022 Influenza [...] and were consensually agreed upon. Care Teams Loom Stop Checker Relationship Specialty Start Date End Date Vane Bob PA-C [address] [place] [address] PCP - General Physician Bedspread Cutter Hand 10/10/21 documented as of this encounter
[2023-08-28] MEDS ORDERED: POLYETHYLENE (MIRALAX) 17 GM PACK PO PRN (22:24)
[2023-08-28] MEDS ORDERED: DOCUSATE SODIUM/SENNA 50/8.6MG TAB PO SCH (22:25)
[2023-08-28] MEDS: POLYETHYLENE (MIRALAX) 17 GM PACK PO STA (23:05)
[2023-08-29 06:19] LABS: Hematocrit (blood only) 34.9 % (37.0-47.0); Hemoglobin 11.6 g/dl (12.0-16.0); Mean Corpuscular Hemoglobin 29.9 pg (25.0-34.0); Mean Corpuscular Hgb Conc 33.2 g/dL (32.0-36.0); Mean Corpuscular Volume 89.9 fL (80.0-100.0); Mean Platelet Volume 9.4 fL (9.4-12.4); Platelet Count 256 K/uL (130-400); RDW Coefficient of Variation 11.4 % (11.5-14.5); RDW Standard Deviation 37.7 fL (36.4-46.3); Red Blood Count 3.88 M/uL (4.20-5.40); White Blood Count 5.91 K/ul (4.8-10.8)
[2023-08-29 06:38] LABS: Calcium 8.5 mg/dl (8.6-10.3); Creatinine Clr Calc Pharmacy 102.8 ml/min; Est GFR (African American) 116.4 ml/min; Est GFR (Non-African American) 100.4 ml/min; Potassium 3.9 mmol/L (3.5-5.1)
[2023-08-29] MEDS: ADVANCED PROBIOTIC 625 MG CAPSULE PO SCH (13:05)
--- NOTE | 2023-08-29 13:05 | Surgery Progress Note ---
Date of Service August 29, 2023 Assessment & Plan (1) Colitis: (2) Intra-abdominal abscess: Plan Sigmoid colitis and pericolic abscess noted on outpatient CT. No leukocytosis, afebrile for the past 24 hours with stable VS. Patient has a shoulder evaluation and treatment scheduled for tomorrow later am and would like to make that appointment if possible. Admitted to medicine for IV antibiotics/conservative management. Continue another day of IV antibiotics. May convert to oral prior to discharge tomorrow am Continue with full liquid diet today. May be discharged with full liquids tomorrow and advance to low fiber at home May discontinue IVF as patient is tolerating fulls well, she is HD stable and without lightheadedness or dizziness Analgesics and antiemetics as needed Will need outpatient colonoscopy after 8 weeks May D/C home in the am on oral antibiotics total 14 day course Follow up in my office in two weeks to evaluate for abscess resolution and necessity for follow up CT. Admission and Anticipated Discharge Date Admission Date: August 28, 2023 Subjective Carin was seen this am. States she is feeling much improved with still some residual discomfort at the lower abdomen. She denies F/C, N/V and is tolerating full liquids. Ambulating without lightheadedness or dizziness. Physical Exam Constitutional: not ill appearing, not in distress and not diaphoretic Respiratory: normal respiratory effort; no respiratory distress, no labored breathing and does not use accessory muscles Cardiovascular: Rate/Rhythm: regular rate; not tachycardic Gastrointestinal (Abdomen): Mild TTP lower abdomen No guarding or rebound tenderness Results & Data Vital Signs (Past 12 Hours) Vital Signs Temp Pulse Pulse Resp BP Pulse Ox O2 Del Method 08/29/23 12:04 36.7 C 62 20 111/72 96 Room Air 08/29/23 08:09 36.7 C 64 18 110/72 96 Room Air 08/29/23 07:30 58 L 08/29/23 03:08 36.6 C 54 L 16 91/59 L 95 Room Air PG Care Time/CCT Total # of Minutes Spent Total Time Spent with Patient: Total time spent is greater than 50% in coordination of care (as documented) at patient's floor/unit and/or counseling patient: [place] [address] SUB INP/OBS CARE 04/22MIN Patient Type Established Diagnoses Colitis K52.9 Intra-abdominal abscess K65.1
[2023-08-29] MEDS ORDERED: MoRPHine SULFATE 2 MG/ML CARP IV PRN (15:47)
--- NOTE | 2023-08-29 15:47 | Hospitalist Progress Note ---
Date of Service August 29, 2023 Assessment & Plan (1) Sepsis: Plan: Intra-abdominal abscess Colitis --Outpatient CT: Significant wall thickening and inflammatory changes of the mid sigmoid colon consistent with colitis. Small phlegmon/early abscess collection between inflamed colon and uterus measuring 3 x 2.2 cm. Mild inflammatory changes left ovary also noted which may be secondary to adjacent inflammatory changes of the colon. -- Blood culture pending -- Continue Cipro, Flagyl, IV fluids --Pain control --Appreciate surgery input: Conservative management with IV antibiotics --Will obtain stool studies if develops diarrhea Will need outpatient colonoscopy in 8 weeks Clinically improving Check stool for C. 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 Bronchial asthma No signs of exacerbation Monitor H/O Cervical intraepithelial neoplasia S/P LEEP Mood disorder--currently not on meds Ongoing tobacco abuse--counseled to quit smoking DVT Px: Lovenox SQ Code Status Full code Admission and Anticipated Discharge Date Admission Date: August 28, 2023 Subjective Patient is seen and examined at bedside Abdominal pain continues to improve Discussed with surgery today Tolerating current diet Had 2 loose BMs today Denies any nausea, vomiting, chest pain, dyspnea Review of Systems Review of Systems: All systems reviewed & are unremarkable except as noted in Subjective Physical Exam Physical Exam: Physical Exam: Vitals signs as noted above General Appearance:Obese, no apparent distress Head: normocephalic, Atraumatic Eyes: normal inspection, EOMI Neck: supple, Trachea midline Respiratory/Chest: Normal breath sounds, CTA, No accessory muscle use Cardiovascular: S1, S2, No murmur Abdomen/GI:Soft, LLQ tender, Bowel sounds present Extremities/Musculoskeletal:normal inspection, no edema Neurologic/Psych:AAOX3, grossly no focal neurological deficits Skin: normal color, warm Results & Data Results & Data Vital Signs (Past 12 Hours) Vital Signs Temp Pulse Pulse Resp BP Pulse Ox O2 Del Method 08/29/23 15:43 36.8 C 80 20 100/65 94 Room Air 08/29/23 15:32 58 L 08/29/23 12:04 36.7 C 62 20 111/72 96 Room Air 08/29/23 08:09 36.7 C 64 18 110/72 96 Room Air 08/29/23 07:30 58 L Laboratory Results Short CBC 08/29/23 Range/Units 05:32 WBC 5.91 (4.8-10.8) K/ul Hgb 11.6 L (12.0-16.0) g/dl Hct 34.9 L (37.0-47.0) % Plt Count 256 (130-400) K/uL [facility] 08/29/23 05:32 Sodium 139 Potassium 3.9 Chloride 107 Carbon Dioxide 26 BUN 6 Creatinine 0.75 Glucose 83 Calcium 8.5 L
--- NOTE | 2023-08-29 19:01 | Electrocardiogram Report ---
Test Reason : Blood Pressure : / mmHG Vent. Rate : 098 BPM Atrial Rate : 098 BPM P-R Int : 128 ms QRS Dur : 082 ms QT Int : 344 ms P-R-T Axes : 027 022 032 degrees QTc Int : 439 ms Normal sinus rhythm Normal ECG When compared with ECG of 07-MAY-2022 13:37, Questionable change in QRS axis Confirmed by Gilbert Chris ([id number]) on 08/29/2023 7:01:04 PM Referred By: Denver Neal Confirmed By:Gilbert Chris
[2023-08-30 07:53] LABS: Hematocrit (blood only) 38.3 % (37.0-47.0); Hemoglobin 12.9 g/dl (12.0-16.0); Mean Corpuscular Hemoglobin 29.9 pg (25.0-34.0); Mean Corpuscular Hgb Conc 33.7 g/dL (32.0-36.0); Mean Corpuscular Volume 88.7 fL (80.0-100.0); Mean Platelet Volume 9.2 fL (9.4-12.4); Platelet Count 274 K/uL (130-400); RDW Coefficient of Variation 11.7 % (11.5-14.5); RDW Standard Deviation 37.3 fL (36.4-46.3); Red Blood Count 4.32 M/uL (4.20-5.40); White Blood Count 6.45 K/ul (4.8-10.8)
[2023-08-30 08:06] LABS: BUN Creatinine Ratio 9.3 (10-20); Calcium 8.7 mg/dl (8.6-10.3); Creatinine Clr Calc Pharmacy 101.9 ml/min; Est GFR (African American) 116.4 ml/min; Est GFR (Non-African American) 100.4 ml/min; Potassium 3.9 mmol/L (3.5-5.1)
--- NOTE | 2023-08-30 09:32 | Hospitalist Progress Note ---
Date of Service August 30, 2023 Assessment & Plan (1) Sepsis: Plan: Intra-abdominal abscess Colitis --Outpatient CT: Significant wall thickening and inflammatory changes of the mid sigmoid colon consistent with colitis. Small phlegmon/early abscess collection between inflamed colon and uterus measuring 3 x 2.2 cm. Mild inflammatory changes left ovary also noted which may be secondary to adjacent inflammatory changes of the colon. 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 No signs of exacerbation Monitor H/O Cervical intraepithelial neoplasia S/P LEEP Mood disorder--currently not on meds Ongoing tobacco abuse--counseled to quit smoking DVT Px: Lovenox SQ Code Status Full code Admission and Anticipated Discharge Date Admission Date: August 28, 2023 Subjective Patient is seen and examined at bedside Abdominal pain resolved Tolerating current diet Eager to get discharged No other complaints Denies any nausea, vomiting, chest pain, dyspnea Review of Systems Review of Systems: All systems reviewed & are unremarkable except as noted in Subjective Physical Exam Physical Exam: Physical Exam: Vitals signs as noted above General Appearance:Obese, no apparent distress Head: normocephalic, Atraumatic Eyes: normal inspection, EOMI Neck: supple, Trachea midline Respiratory/Chest: Normal breath sounds, CTA, No accessory muscle use Cardiovascular: S1, S2, No murmur Abdomen/GI:Soft, non tender, Bowel sounds present Extremities/Musculoskeletal:normal inspection, no edema Neurologic/Psych:AAOX3, grossly no focal neurological deficits Skin: normal color, warm Results & Data Results & Data Vital Signs (Past 12 Hours) Vital Signs Temp Pulse Pulse Resp BP Pulse Ox O2 Del Method 08/30/23 08:06 57 L 08/30/23 07:39 36.6 C 63 18 141/90 H 95 Room Air 08/30/23 04:30 36.8 C 60 20 94/64 L 93 Room Air 08/29/23 23:55 36.7 C 58 L 20 102/64 93 Room Air 08/29/23 23:29 56 L Laboratory Results Short CBC 08/30/23 Range/Units 07:20 WBC 6.45 (4.8-10.8) K/ul Hgb 12.9 (12.0-16.0) g/dl Hct 38.3 (37.0-47.0) % Plt Count 274 (130-400) K/uL [facility] 08/30/23 07:20 Sodium 138 Potassium 3.9 Chloride 105 Carbon Dioxide 26 BUN 7 Creatinine 0.75 Glucose 88 Calcium 8.7
--- NOTE | 2023-08-30 12:57 | Discharge Summary ---
Date of Service August 30, 2023 Admission HPI Per Admitting Provider History obtained from patient and records. Medical history significant for bronchial asthma, history of cervical intraepithelial neoplasia status post LEEP, mood disorder, gestational DM, ongoing tobacco abuse. 2.5 weeks history of suprapubic/lower abdominal pain without fever or chills. Patient seen at PCPs office last week. No infection on UA. Pelvic ultrasound requested by PCP due to ovarian cyst concerns. Outpatient pelvic ultrasound negative. CT abdomen pelvis requested due to persistent symptoms. Study done today showed: Significant wall thickening and inflammatory changes of the mid sigmoid colon consistent with colitis. Small phlegmon/early abscess collection between inflamed colon and uterus measuring 3 x 2.2 cm. Mild inflammatory changes left ovary also noted which may be secondary to adjacent inflammatory changes of the colon. Patient directed to ER by PCP. SBP 170s upon arrival at the ER. Cefepime and Flagyl administered at the ER. Medical History as above Surgical History : Shoulder surgery, tonsillectomy/adenectomy, LEEP surgery, dental surgery, section Family History : Heart disease Personal/Social history : 1 pack daily, no EtOH intake, [employer] Principal Diagnosis Intra-abdominal abscess Colitis Sepsis Discharge Data Allergies Allergy/AdvReac Type Severity Reaction Status Date / Time azithromycin Allergy Severe Swelling Verified 08/27/23 20:57 of Lip/Tongue/Throat doxycycline Allergy Severe SHORTNESS Verified 08/27/23 20:57 OF BREATH dog dander Allergy Intermediate ITCHY Verified 08/27/23 20:57 EYES, SNEEZING, RUNNY NOSE, CONGESTION Penicillins Allergy Intermediate HIVES Verified 08/27/23 20:57 Consultations 08/27/23 20:30 ED Decision to Admit Stat 08/28/23 02:23 Consult General Surgery Routine Procedures Performed Laboratory Results WBC 6.45 K/ul (4.8-10.8) 08/30/23 07:20 RBC 4.32 M/uL (4.20-5.40) 08/30/23 07:20 Hgb 12.9 g/dl (12.0-16.0) 08/30/23 07:20 Hct 38.3 % (37.0-47.0) 08/30/23 07:20 MCV 88.7 fL (80.0-100.0) 08/30/23 07:20 MCH 29.9 pg (25.0-34.0) 08/30/23 07:20 MCHC 33.7 g/dL (32.0-36.0) 08/30/23 07:20 RDW Std Deviation 37.3 fL (36.4-46.3) 08/30/23 07:20 RDW Coeff of [place] 11.7 % (11.5-14.5) 08/30/23 07:20 Plt Count 274 K/uL (130-400) 08/30/23 07:20 MPV 9.2 fL (9.4-12.4) L 08/30/23 07:20 Immature Gran % (Auto) 0.5 % 08/28/23 04:20 Neut % (Auto) 56.3 % 08/28/23 04:20 Lymph % (Auto) 34.3 % 08/28/23 04:20 [place] % (Auto) 7.0 % 08/28/23 04:20 Eos % (Auto) 1.4 % 08/28/23 04:20 Baso % (Auto) 0.5 % 08/28/23 04:20 Neut # (Auto) 3.73 K/uL (1.40-6.50) 08/28/23 04:20 Lymph # (Auto) 2.27 K/uL (1.20-3.40) 08/28/23 04:20 [place] # (Auto) 0.46 K/uL (0.11-0.59) 08/28/23 04:20 Eos # (Auto) 0.09 K/uL (0.00-0.50) 08/28/23 04:20 Baso # (Auto) 0.03 K/uL (0.00-0.20) 08/28/23 04:20 Immature Gran # (Auto) 0.03 K/uL (0.01-0.20) 08/28/23 04:20 PT 10.5 Seconds (9.0-12.0) 08/27/23 18:07 INR 1.0 (0.9-1.1) 08/27/23 18:07 APTT 26 Seconds (21-31) 08/27/23 18:07 PTT Ratio 1.0 08/27/23 18:07 Sodium 138 mmol/L (136-145) 08/30/23 07:20 Potassium 3.9 mmol/L (3.5-5.1) 08/30/23 07:20 Chloride 105 mmol/L (98-107) 08/30/23 07:20 Carbon Dioxide 26 mmol/L (21-32) 08/30/23 07:20 Anion Gap 7 (3-11) 08/30/23 07:20 BUN 7 mg/dl (6-23) 08/30/23 07:20 Creatinine 0.75 mg/dl (0.6-1.2) 08/30/23 07:20 Est Cr Clr Drug Dosing 101.9 ml/min 08/30/23 07:20 Est GFR ( Amer) 116.4 ml/min 08/30/23 07:20 Est GFR (Non-Af Amer) 100.4 ml/min 08/30/23 07:20 BUN/Creatinine Ratio 9.3 (10-20) L 08/30/23 07:20 Glucose 88 mg/dl (70-99(Fasting)) 08/30/23 07:20 Lactate 1.0 mmol/L (0.4-2.0) 08/27/23 18:07 Calcium 8.7 mg/dl (8.6-10.3) 08/30/23 07:20 Magnesium 2.0 mg/dl (1.7-2.4) 08/30/23 07:20 Total Bilirubin 0.2 mg/dl (0.2-1.0) 08/27/23 18:07 AST 12 U/L (13-39) L 08/27/23 18:07 ALT 13 U/L (7-52) 08/27/23 18:07 Alkaline Phosphatase 66 U/L (34-104) 08/27/23 18:07 Troponin I High Sens 4.1 pg/ml (0-14) 08/27/23 18:07 Total Protein 7.8 gm/dl (6.0-8.3) 08/27/23 18:07 Albumin 4.3 gm/dl (3.4-5.0) 08/27/23 18:07 Globulin 3.5 gm/dl (2.5-4.0) 08/27/23 18:07 Albumin/Globulin Ratio 1.2 (0.9-2) 08/27/23 18:07 Procalcitonin < 0.02 ng/ml (0-0.5) 08/27/23 18:07 Urine Color Yellow 08/27/23 18:16 Urine Appearance Clear (Clear) 08/27/23 18:16 Urine pH 7.5 (4.5-7.5) 08/27/23 18:16 Ur Specific [place] 1.035 (1.000-1.030) H 08/27/23 18:16 Urine Protein Negative (Negative) 08/27/23 18:16 Urine Glucose (UA) Negative (Negative) 08/27/23 18:16 Urine Ketones Negative (Negative) 08/27/23 18:16 Urine Blood Negative (Negative) 08/27/23 18:16 Urine Nitrite Negative (Negative) 08/27/23 18:16 Urine Bilirubin Negative (Negative) 08/27/23 18:16 Urine Urobilinogen Negative (Negative) 08/27/23 18:16 Ur Leukocyte Esterase Negative (Negative) 08/27/23 18:16 Stl C. diff Tox B Gene Negative Cdiff Gene (Neg) 08/30/23 Unknown Impressions Chest X-Ray 08/27/23 17:34 XR chest 1V not portable HISTORY: Sepsis COMPARISON: Chest 02/11/2023. FINDINGS: The lungs are clear. Cardiac silhouette is normal in size. No pleural effusions. No pneumothorax. IMPRESSION: No acute process. ACT 112: Negative or not required by law. Electronically signed by: Brayan Donohue M.D. 08/28/2023 8:10 AM Hospital Course (1) Sepsis: Intra-abdominal abscess Colitis --Outpatient CT: Significant wall thickening and inflammatory changes of the mid sigmoid colon consistent with colitis. Small phlegmon/early abscess collection between inflamed colon and uterus measuring 3 x 2.2 cm. Mild inflammatory changes left ovary also noted which may be secondary to adjacent inflammatory changes of the colon. 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 No signs of exacerbation Monitor H/O Cervical intraepithelial neoplasia S/P LEEP Mood disorder--currently not on meds Ongoing tobacco abuse--counseled to quit smoking DVT Px: Lovenox SQ Code Status Full code Total Time Total Time Spent Total Time Spent (In Minutes): 47 minutes Discharge Plan Discharge Items Patient Disposition: Home - Self-Care Reason For Visit: SEPSIS, HTN URG Discharge Diagnosis: Intra-abdominal abscess Colitis Sepsis Condition on Discharge: Fair Activity: Per Instructions section Exercise/Sports: Wait until after follow-up appointment Non-emergency contact: Primary Care Provider and Surgeon Call non-emergency contact if: you have any medication questions, your symptoms worsen, your pain is concerning for you and you have a fever Follow-up/Referrals: Denver Neal MD [Primary Care Provider] - (Date & Time 09/03/2023 10:20 AM Provider Vane Bob PA-C Department [facility] ) Diet: Low Fiber Addtl Attending Provider Instructions: Follow-up with your primary care physician in 1 week Follow-up with your surgeon Dr. Cason in 2 weeks -- Blood cultures are pending at the time of discharge. Follow-up with your physician for results. --Complete the antibiotic course ciprofloxacin, metronidazole as prescribed. -- Recommend to get colonoscopy as outpatient when appropriate Seek immediate medical attention if your symptoms reoccur or worsen Please take all medications as instructed on discharge list below. Please call if you have any questions or problems. You can reach a [facility] hospitalist on duty at [facility] 24 hours a day by calling [phone] Pending Studies at Discharge: Yes Studies:: Blood Cultures Stand-Alone Forms: My [facility], Smoking Cessation Medications and DC Order Prescriptions: New Advanced Probiotic 625 mg (10 billion cell) Capsule 1 cap PO DAILY Qty: 30 0RF ciprofloxacin HCl 500 mg tablet 500 mg PO BID Qty: 23 0RF metronidazole 500 mg tablet 500 mg PO TID 12 Days Qty: 35 0RF Continued norethindrone acetate 5 mg tablet 5 mg PO QAM No Action triamcinolone acetonide 40 mg/mL suspension 80 mg intra-articular ONCE Qty: 2 0RF Discharge Orders: Discharge Order (Routine); Ordered 08/30/23 Ordered By: Toby Burleson Admission Data Admit Date/Time: 08/28/23 00:41 Attending Provider: Toby Burleson Admit Provider: Zachary Johnson Primary Care Provider: Denver Neal Other Providers: Zachary Johnson; [place] Cason Other Interventions: Discharge Summary Assessment (RN) Last Done: 08/30/23 10:10
== END 2023-08-30 10:23 | disposition home or self-care (01) | DRG 871 ==
LOC: ED 17:27 → EDINP 08-28 00:41 → 2N 08-28 02:23